=== PATIENT | female | born 1950 | race Hispanic/Latino ===

== ENCOUNTER 2019-07-07 13:05 | Emergency (ER) | payer MEDICARE ==
[2019-07-07 13:12] VITALS: BP 152/74
--- NOTE | 2019-07-07 13:46 | Cat Scan Report ---
CT BRAIN: 07/07/2019 INDICATION / CLINICAL INFORMATION: MAIN: fall, HASSAN, dizziness fall 2 weeks ago . COMPARISON: None available. FINDINGS: BRAIN/INTRACRANIAL STRUCTURES: Unenhanced CT images of the brain demonstrate no evidence of acute int racranial abnormality. Ventricles and sulci are slightly prominent in size, consistent with normal age-related atrophic wright ge. There is no evidence of acute ischemic injury, hemorrhage, or mass. There are no abnormal extra-axial fluid collections. Atherosclerotic vascular calcifications are present in the distal internal carotid arteries and verte bral arteries. EXTRACRANIAL STRUCTURES: Unremarkable. IMPRESSION: No acute abnormality. No CT evidence of recent injury. All CT scans at this location are performed using dose reduction to ALARA by means of automated expos ure control. Signer Name: Tai France MD Signed: 07/07/2019 1:41 PM Workstation Name: [id number]
--- NOTE | 2019-07-07 13:48 | Emergency Department Report ---
ED Dizziness HPI - General Chief Complaint: Dizziness Stated Complaint: FALL Source: patient Mode of arrival: Ambulatory Limitations: No Limitations - History of Present Illness Initial Comments: 69-year-old female in no acute distress presents to the emergency room complaining of nausea slight headache. Patient reports that she lost her footing and fell 2 weeks ago. She said at that time she had left side eyebrow swelling and facial swelling and soreness. Patient states that she did not have any change in vision no ear pain she just says that sometimes she hears it popping but that is both ears. Patient denies any vomiting states that she has a slight headache today and nausea. She does admit to having a history of vertigo. Patient states that she had fallen on carpet which was kind of thin. She denies any loss of consciousness no vomiting or nausea at the time MD Complaint: dizziness Onset/Timin -: week(s) (Had a fall), This morning Description: "room spinning" History of Same: Yes History of Trauma: Yes Severity: mild Improves With: remaining still Worsens With: movement Associated Symptoms: denies other symptoms - Related Data Previous Rx's Medication Instructions Recorded Last Taken Type HYDROcodone/APAP 5-325 [[place] 1 each PO Q6HR PRN #20 tablet 12/20/15 Unknown Rx 5/325] Meclizine [Antivert] 25 mg PO TID PRN #15 tablet 07/07/19 Unknown Rx Ondansetron [Zofran ODT TAB] 4 mg PO ONCE #12 tab.rapdis 07/07/19 Unknown Rx Allergies Allergy/AdvReac Type Severity Reaction Status Date / Time No Known Allergies Allergy Unverified 12/20/15 18:45 ED Review of Systems ROS: Stated complaint: FALL Other details as noted in HPI Comment: All other systems reviewed and negative ED Past Medical Hx - Past Medical History Previous Medical History?: Yes Hx Hypertension: Yes Additional medical history: benign tumor RUQ. AFib. shingles - Surgical History Past Surgical History?: Yes Additional Surgical History: bladder - Social History Smoking Status: Never Smoker Substance Use Type: None - Medications Home Medications: Home Medications Medication Instructions Recorded Confirmed Last Taken Type HYDROcodone/APAP 5-325 [[place] 1 each PO Q6HR PRN #20 tablet 12/20/15 Unknown Rx 5/325] Meclizine [Antivert] 25 mg PO TID PRN #15 tablet 07/07/19 Unknown Rx Ondansetron [Zofran ODT TAB] 4 mg PO ONCE #12 tab.rapdis 07/07/19 Unknown Rx ED Physical Exam - General Limitations: No Limitations General appearance: alert, in no apparent distress - Head Head exam: Present: atraumatic, normocephalic - Eye Eye exam: Present: other (Left eyebrow bruising no tenderness to palpate). Absent: PERRL, EOMI, periorbital swelling, periorbital tenderness - ENT ENT exam: Present: normal exam, normal external ear exam - Neck Neck exam: Present: normal inspection, full ROM - Cardiovascular Cardiovascular Exam: Present: regular rate, normal rhythm. Absent: systolic murmur, diastolic murmur, rubs, gallop - Neurological Exam Neurological exam: Present: alert, oriented X3, normal gait - Expanded Neurological Exam Expanded Cranial nerves: EOM's Intact: Normal, Gag Reflex: Normal, Tongue Deviation: Normal, Nystagmus: Normal, Facial Sensation: Normal, Facial Palsy with Forehead Movement: Normal, Facial Palsy without Forehead Movement: Normal Cerebellar function: Finger to Nose: Normal, Heel to [place]: Normal, Romberg: Normal Upper motor neuron: Jim Neglect: Normal, Pronator Drift: Normal, Sensory Ex tinction: Normal Sensory exam: Upper Extremity Light Touch: Normal, Upper Extremity Pin Prick: Normal, Upper Extremity Temperature: Normal, UE 2 Point Discrimination: Normal, Lower Extremity Light Touch: Normal, Lower Extremity Pin Prick: Normal, Lower Extremity Temperature: Normal, LE 2 Point Discrimination: Normal Motor strength exam: RUE: 4, LUE: 4, RLE: 4, LLE: 4 Best Eye Response ([place]): (4) open spontaneously Best Motor Response ([place]): (6) obeys commands Best Verbal Response ([place]): (5) oriented [place] Total: 15 - Psychiatric Psychiatric exam: Present: normal affect, normal mood - Skin Skin exam: Present: ecchymosis (Left eyebrow) ED Course Vital Signs 07/07/19 13:09 Temperature 97.8 F Pulse Rate 60 Respiratory 18 Rate Blood Pressure 152/74 O2 Sat by Pulse 97 Oximetry ED Medical Decision Making - Radiology Data Radiology results: report reviewed Print Report Referring Physician:ED DOCPatient Name:RHONDADIANA MORELANDPatient ID:[id number] of :[id number]:FemaleAccession:[id number] Date:0566-30-24Oofggo Status:Finalized Findings [facility] [address] [place] [address] Cat Scan Report Signed Patient: RHONDA MORELAND MR#: [id number] : 1950 Acct:[id number] Age/Sex: 69 / F ADM Date: 07/07/19 Loc: ED Attending Dr: Ordering Physician: CELIA MANUEL MD Date of Service: 07/07/19 Procedure(s): CT head/brain wo con Accession Number(s): [id number] cc: CELIA MANUEL MD CT BRAIN: 07/07/2019 INDICATION / CLINICAL INFORMATION: MAIN: fall, HASSAN, dizziness fall 2 weeks ago . COMPARISON: None available. FINDINGS: BRAIN/INTRACRANIAL STRUCTURES: Unenhanced CT images of the brain demonstrate no evidence of acute intracranial abnormality. Ventricles and sulci are slightly prominent in size, consistent with normal age- related atrophic change. There is no evidence of acute ischemic injury, hemorrhage, or mass. There are no abnormal extra- axial fluid collections. Atherosclerotic vascular calcifications are present in the distal internal carotid arteries and vertebral arteries. EXTRACRANIAL STRUCTURES: Unremarkable. IMPRESSION: No acute abnormality. No CT evidence of recent injury. All CT scans at this location are performed using dose reduction to ALARA by means of automated exposure control. Signer Name: Tai France MD Signed: 07/07/2019 1:41 PM Workstation Name: [id number] Transcribed By: AO Dictated By: Tai France MD Electronically Authenticated By: Tai France MD Signed Date/Time: 07/07/19 1341 DD/ 1340 TD/TT: - Medical Decision Making 69-year-old female in no acute distress presents to the emergency room complaining of nausea slight headache. Patient reports that she lost her footing and fell 2 weeks ago. She said at that time she had left side eyebrow swelling and facial swelling and soreness. Patient states that she did not have any change in vision no ear pain she just says that sometimes she hears it popping but that is both ears. Patient denies any vomiting states that she has a slight headache today and nausea. She does admit to having a history of vertigo. Patient states that she had fallen on carpet which was kind of thin. She denies any loss of consciousness no vomiting or nausea at the time. CT of head neck are normal. Patient will be given Zofran ODT for the nausea. Encourage patient to increase her fluid intake advance her diet as tolerated we will discharge patient home on Zofran and meclizine. Patient is to follow-up with her primary care provider. Critical care attestation.: If time is entered above; I have spent that time in minutes in the direct care of this critically ill patient, excluding procedure time. ED Disposition Clinical Impression: Fall, Vertigo, Mild headache, Nausea Disposition: DC- TO HOME OR SELFCARE Is pt being admited?: No Does the pt Need Aspirin: No Condition: Stable Instructions: Vertigo (ED) Additional Instructions: CAT scans were negative for any acute findings. Please take the Zofran and the meclizine for the nausea and spinning of the room. Follow-up with your primary care provider if he has any further concerns. Prescriptions: Meclizine [Antivert] 25 mg PO TID PRN #15 tablet PRN Reason: Vertigo Ondansetron [Zofran ODT TAB] 4 mg PO ONCE #12 tab.mary Referrals: PRIMARY CAREMD [Referring] - 3-5 Days CASTRO MOTA MD [Staff Physician] - 3-5 Days
[2019-07-07] MEDS ORDERED: ONDANSETRON 4 MG ODT TAB PO ONE (13:49)
--- NOTE | 2019-07-07 14:15 | Cat Scan Report ---
CT CERVICAL SPINE: 07/07/2019 INDICATION / CLINICAL INFORMATION: MAIN: Fall, neck pain posterior neck pain fall two weeks ago. COMPARISON: None available. FINDINGS: CT images of the cervical spine were obtained. Images are evaluated in the axial, coronal, and sagitt al planes. There is no evidence of acute abnormality. Mild right convex scoliosis is present. Vertebral body alignment is otherwise well preserved. LEVEL BY LEVEL ANALYSIS: . CRANIOCERVICAL JUNCTION: Unremarkable. PARASPINAL STRUCTURES: Unremarkable IMPRESSION: No acute abnormality. All CT scans at this location are performed using dose reduction to ALARA by means of automated expos ure control. Signer Name: Tai France MD Signed: 07/07/2019 2:11 PM Workstation Name: [id number]
== END 2019-07-07 14:18 | disposition home or self-care (01) ==
LOC: ED 13:05
DX: R42 Dizziness and giddiness (principal); R51 Headache; R11.0 Nausea; I10 Essential (primary) hypertension; Z98.890 Other specified postprocedural states; Z79.899 Other long term (current) drug therapy; W19.XXXA Unspecified fall, initial encounter; Y93.89 Activity, other specified; Y92.89 Other specified places as the place of occurrence of the external cause; Y99.8 Other external cause status
CPT/HCPCS: 70450; 72125; Q0162

== ENCOUNTER 2020-01-13 21:53 | Emergency (ER) | payer MEDICARE ==
[2020-01-13 23:11] LABS: Basophils % (Auto) 0.4 % (0.0-1.8); Eosinophils % (Auto) 0.3 % (0.0-4.3); Lymphocytes # (Auto) 1.2 K/mm3 (1.2-5.4); Lymphocytes % (Auto) 19.9 % (13.4-35.0); Mean Corpuscular HGB Conc 37 % (30-34); Mean Corpuscular Volume 93 fl (79-97); Monocytes # (Auto) 0.5 K/mm3 (0.0-0.8); Monocytes % (Auto) 7.8 % (0.0-7.3); Platelet Count 258 K/mm3 (140-440); Red Blood Count 3.37 M/mm3 (3.65-5.03)
[2020-01-13 23:13] LABS: Hematocrit 31.3 % (30.3-42.9); Hemoglobin 11.7 gm/dl (10.1-14.3)
[2020-01-13] MEDS ORDERED: cloNIDine 0.1 MG TAB PO ONE (23:15)
--- NOTE | 2020-01-13 23:21 | Emergency Department Report ---
HPI - General Chief Complaint: Neuro Symptoms/Deficit Time Seen by Provider: 01/13/20 22:26 - HPI HPI: This is a 70-year-old female presents to the emergency department from home with complaint of feeling "sick" and "I do not feel well", but the patient is unable to elaborate on her symptoms. Patient does say that her mouth feels dry and she feels like it is going to "stick together." She also says that sometimes she feels like she is going to pass out. Patient tells me that she feels disoriented at times over the past 2 days but that it worsened this morning. She complained of a generalized headache through triage, but denies any headache at the time of my examination. She denies any vision change, slurred speech, numbness or paresthesias, chest pain, shortness of breath or any other neurological deficits. Patient has a history of hypertension and says that he she has been compliant with her Bystolic but "I have been watching my blood pressure keep going up." The patient also says that she has been feeling anxious as she has not had any of her Xanax over the last month. The patient also has a history of remote atrial fibrillation that was treated with "a procedure" in 2007 and has not returned since her primary care physician is Dr. Woody Ross. No recent travel or sick contacts at home. She denies any tobacco or illicit drug use. ED Past Medical Hx - Past Medical History Previous Medical History?: Yes Hx Hypertension: Yes Additional medical history: benign tumor RUQ. AFib. shingles - Surgical History Past Surgical History?: Yes Additional Surgical History: bladder - Social History Smoking Status: Never Smoker Substance Use Type: None, Marijuana - Medications Home Medications: Home Medications Medication Instructions Recorded Confirmed Last Taken Type HYDROcodone/APAP 5-325 [[place] 1 each PO Q6HR PRN #20 tablet 12/20/15 Unknown Rx 5/325] Meclizine [Antivert] 25 mg PO TID PRN #15 tablet 07/07/19 Unknown Rx Ondansetron [Zofran ODT TAB] 4 mg PO ONCE #12 tab.rapdis 07/07/19 Unknown Rx ED Review of Systems ROS: Stated complaint: WEAKNESS Other details as noted in HPI Comment: All other systems reviewed and negative Constitutional: denies: chills, fever Eyes: denies: eye pain, vision change ENT: denies: ear pain, throat pain Respiratory: denies: cough, shortness of breath Cardiovascular: denies: chest pain, palpitations Gastrointestinal: denies: abdominal pain, vomiting Genitourinary: denies: dysuria, discharge Musculoskeletal: denies: back pain, arthralgia Skin: denies: as per HPI, lesions Neurological: headache, confusion. denies: numbness, paresthesias Physical Exam - Physical Exam Vital Signs: Vital Signs 01/13/20 01/13/20 22:01 22:57 Temperature 98.5 F Pulse Rate 64 69 Respiratory 20 16 Rate Blood Pressure 178/74 O2 Sat by Pulse 98 100 Oximetry Physical Exam: GENERAL: The patient is well-developed well-nourished. HENT: Normocephalic. Atraumatic. Patient has moist mucous membranes. EYES: Extraocular motions are intact. No nystagmus. NECK: Supple. Trachea is midline. CHEST/LUNGS: Clear to auscultation. There is no respiratory distress noted. HEART/CARDIOVASCULAR: Regular. There is no tachycardia. There is no murmur. ABDOMEN: Abdomen is soft, nontender. Patient has normal bowel sounds. SKIN: Skin is warm and dry. NEURO: The patient is awake, alert, and oriented. The patient is cooperative. The patient has no focal neurologic deficits. Normal speech. Cranial nerves II through XII grossly intact. No facial asymmetry. No pronator drift or dysmetria. MUSCULOSKELETAL: There is no tenderness or deformity. There is no limitation range of motion. ED Course Vital Signs 01/13/20 01/13/20 22:01 22:57 Temperature 98.5 F Pulse Rate 64 69 Respiratory 20 16 Rate Blood Pressure 178/74 O2 Sat by Pulse 98 100 Oximetry - Reevaluation(s) Reevaluation #1: 01/14/20 01:17 Lab Results 01/13/20 01/13/20 01/13/20 Range/Units 22:08 22:38 22:38 WBC 6.1 (4.5-11.0) K/mm3 RBC 3.37 L (3.65-5.03) M/mm3 Hgb 11.7 (10.1-14.3) gm/dl Hct 31.3 (30.3-42.9) % MCV 93 (79-97) fl MCH 35 H (28-32) pg MCHC 37 H (30-34) % RDW 15.0 (13.2-15.2) % Plt Count 258 (140-440) K/mm3 Lymph % (Auto) 19.9 (13.4-35.0) % [place] % (Auto) 7.8 H (0.0-7.3) % Eos % (Auto) 0.3 (0.0-4.3) % Baso % (Auto) 0.4 (0.0-1.8) % Lymph # (Auto) 1.2 (1.2-5.4) K/mm3 [place] # (Auto) 0.5 (0.0-0.8) K/mm3 Eos # (Auto) 0.0 (0.0-0.4) K/mm3 Baso # (Auto) 0.0 (0.0-0.1) K/mm3 Seg Neutrophils % 71.6 H (40.0-70.0) % Seg Neutrophils # 4.4 (1.8-7.7) K/mm3 PT 12.1 L (12.2-14.9) Sec. INR 0.91 (0.87-1.13) APTT 32.7 (24.2-36.6) Sec. Thrombin Time (15.1-19.6) Sec. Sodium (137-145) mmol/L Potassium (3.6-5.0) mmol/L Chloride (98-107) mmol/L Carbon Dioxide (22-30) mmol/L Anion Gap mmol/L BUN (7-17) mg/dL Creatinine (0.6-1.2) mg/dL Estimated GFR ml/min BUN/Creatinine Ratio % Glucose (65-100) mg/dL POC Glucose 98 (70-105) mg/dL Calcium (8.4-10.2) mg/dL Troponin T (0.00-0.029) ng/mL Urine Color (Yellow) Urine Turbidity (Clear) Urine pH (5.0-7.0) Ur Specific [place] (1.003-1.030) Urine Protein (Negative) mg/dL Urine Glucose (UA) (Negative) mg/dL Urine Ketones (Negative) mg/dL Urine Blood (Negative) Urine Nitrite (Negative) Urine Bilirubin (Negative) Urine Urobilinogen (<2.0) mg/dL Ur Leukocyte Esterase (Negative) Urine WBC (Auto) (0.0-6.0) /HPF Urine RBC (Auto) (0.0-6.0) /HPF U Epithel Cells (Auto) (0-13.0) /HPF Urine Bacteria (Auto) (Negative) /HPF Urine Mucus /HPF Urine Opiates Screen Urine Methadone Screen Ur Barbiturates Screen Ur Phencyclidine Scrn Ur Amphetamines Screen U Benzodiazepines Scrn Urine Cocaine Screen U Marijuana (THC) Screen Drugs of Abuse Note Plasma/Serum Alcohol (0-0.07) % 01/13/20 01/13/20 01/13/20 Range/Units 22:38 22:38 23:22 WBC (4.5-11.0) K/mm3 RBC (3.65-5.03) M/mm3 Hgb (10.1-14.3) gm/dl Hct (30.3-42.9) % MCV (79-97) fl MCH (28-32) pg MCHC (30-34) % RDW (13.2-15.2) % Plt Count (140-440) K/mm3 Lymph % (Auto) (13.4-35.0) % [place] % (Auto) (0.0-7.3) % Eos % (Auto) (0.0-4.3) % Baso % (Auto) (0.0-1.8) % Lymph # (Auto) (1.2-5.4) K/mm3 [place] # (Auto) (0.0-0.8) K/mm3 Eos # (Auto) (0.0-0.4) K/mm3 Baso # (Auto) (0.0-0.1) K/mm3 Seg Neutrophils % (40.0-70.0) % Seg Neutrophils # (1.8-7.7) K/mm3 PT (12.2-14.9) Sec. INR (0.87-1.13) APTT (24.2-36.6) Sec. Thrombin Time 13.4 L (15.1-19.6) Sec. Sodium 132 L (137-145) mmol/L Potassium 3.5 L (3.6-5.0) mmol/L Chloride 92.9 L (98-107) mmol/L Carbon Dioxide 27 (22-30) mmol/L Anion Gap 16 mmol/L BUN 8 (7-17) mg/dL Creatinine 1.0 (0.6-1.2) mg/dL Estimated GFR 55 ml/min BUN/Creatinine Ratio 8 % Glucose 96 (65-100) mg/dL POC Glucose (70-105) mg/dL Calcium 9.6 (8.4-10.2) mg/dL Troponin T < 0.010 (0.00-0.029) ng/mL Urine Color (Yellow) Urine Turbidity (Clear) Urine pH (5.0-7.0) Ur Specific [place] (1.003-1.030) Urine Protein (Negative) mg/dL Urine Glucose (UA) (Negative) mg/dL Urine Ketones (Negative) mg/dL Urine Blood (Negative) Urine Nitrite (Negative) Urine Bilirubin (Negative) Urine Urobilinogen (<2.0) mg/dL Ur Leukocyte Esterase (Negative) Urine WBC (Auto) (0.0-6.0) /HPF Urine RBC (Auto) (0.0-6.0) /HPF U Epithel Cells (Auto) (0-13.0) /HPF Urine Bacteria (Auto) (Negative) /HPF Urine Mucus /HPF Urine Opiates Screen Urine Methadone Screen Ur Barbiturates Screen Ur Phencyclidine Scrn Ur Amphetamines Screen U Benzodiazepines Scrn Urine Cocaine Screen U Marijuana (THC) Screen Drugs of Abuse Note Plasma/Serum Alcohol < 0.01 (0-0.07) % 01/14/20 01/14/20 Range/Units 00:33 00:33 WBC (4.5-11.0) K/mm3 RBC (3.65-5.03) M/mm3 Hgb (10.1-14.3) gm/dl Hct (30.3-42.9) % MCV (79-97) fl MCH (28-32) pg MCHC (30-34) % RDW (13.2-15.2) % Plt Count (140-440) K/mm3 Lymph % (Auto) (13.4-35.0) % [place] % (Auto) (0.0-7.3) % Eos % (Auto) (0.0-4.3) % Baso % (Auto) (0.0-1.8) % Lymph # (Auto) (1.2-5.4) K/mm3 [place] # (Auto) (0.0-0.8) K/mm3 Eos # (Auto) (0.0-0.4) K/mm3 Baso # (Auto) (0.0-0.1) K/mm3 Seg Neutrophils % (40.0-70.0) % Seg Neutrophils # (1.8-7.7) K/mm3 PT (12.2-14.9) Sec. INR (0.87-1.13) APTT (24.2-36.6) Sec. Thrombin Time (15.1-19.6) Sec. Sodium (137-145) mmol/L Potassium (3.6-5.0) mmol/L Chloride (98-107) mmol/L Carbon Dioxide (22-30) mmol/L Anion Gap mmol/L BUN (7-17) mg/dL Creatinine (0.6-1.2) mg/dL Estimated GFR ml/min BUN/Creatinine Ratio % Glucose (65-100) mg/dL POC Glucose (70-105) mg/dL Calcium (8.4-10.2) mg/dL Troponin T (0.00-0.029) ng/mL Urine Color Yellow (Yellow) Urine Turbidity Clear (Clear) Urine pH 5.0 (5.0-7.0) Ur Specific [place] 1.010 (1.003-1.030) Urine Protein <15 mg/dl (Negative) mg/dL Urine Glucose (UA) Neg (Negative) mg/dL Urine Ketones Neg (Negative) mg/dL Urine Blood Sm (Negative) Urine Nitrite Neg (Negative) Urine Bilirubin Neg (Negative) Urine Urobilinogen < 2.0 (<2.0) mg/dL Ur Leukocyte Esterase Neg (Negative) Urine WBC (Auto) 1.0 (0.0-6.0) /HPF Urine RBC (Auto) 3.0 (0.0-6.0) /HPF U Epithel Cells (Auto) 1.0 (0-13.0) /HPF Urine Bacteria (Auto) 1+ (Negative) /HPF Urine Mucus Few /HPF Urine Opiates Screen Presumptive negative Urine Methadone Screen Presumptive negative Ur Barbiturates Screen Presumptive negative Ur Phencyclidine Scrn Presumptive negative Ur Amphetamines Screen Presumptive negative U Benzodiazepines Scrn Presumptive negative Urine Cocaine Screen Presumptive negative U Marijuana (THC) Screen Presumptive negative Drugs of Abuse Note Disclamer Plasma/Serum Alcohol (0-0.07) % ED Medical Decision Making - Lab Data Result diagrams: 01/13/20 22:38 01/13/20 22:38 - EKG Data -: EKG Interpreted by Me EKG shows normal: sinus rhythm, axis, intervals, QRS complexes, ST-T waves (There is some anterior T wave flattening and/or mild inversion) Rate: normal - EKG Data When compared to previous EKG there are: no significant change Interpretation: unchanged when compared t (12/20/15) - Radiology Data Radiology results: report reviewed CT head without contrast HISTORY: Altered Mental Status. TECHNIQUE: Axial imaging performed from the skull apex through the skull base without the use of contrast. All CT scans at this location are performed using CT dose reduction for ALARA by means of automated exposure control. COMPARISON: 07/07/2019 FINDINGS: Parenchyma: No acute intracranial hemorrhage or parenchymal abnormality. Ventricles: There is mild diffuse brain atrophy with commensurate ventricular enlargement which is likely age appropriate. Soft tissues: Soft tissues including the orbits appear normal. Bones: No acute osseous abnormality. Sinuses: Sinuses and mastoid air cells are clear. IMPRESSION: No acute abnormal ity. - Medical Decision Making This patient presents to the emergency department with some nonspecific complaints of feeling ill. Through triage the patient had complained of a generalized headache. For me, the patient did not complain of any headache but did say that she was intermittently disoriented and sometimes felt as if she was going to pass out. On examination the patient does not have any focal, motor or sensory deficits and her cranial nerves are intact. She is a 0 on the NIH stroke scale. EKG did not show any morphology consistent with ST elevation myocardial infarction or any dysrhythmia and is unchanged from previous. Patient had a CT scan of the head without contrast, ordered through triage, that resulted as negative for any large territorial infarct, hemorrhage, or any other acute process. Patient's labs have been mostly unremarkable including CBC, metabolic panel, TSH, troponin, blood alcohol level, urinalysis and urine drug screen. The patient does present with some mild hypertension but it has been transient and at one point the blood pressure was about 150/50 without any antihypertensive medication given. At times the patient appears very anxious. Once we discussed the negative CT and laboratory results, the patient appeared to feel better and looked clinically improved. Patient was seen ambulatory in the emergency department and both appears and feels stable. She says that she believes that some of her Xanax, which she takes every 8 hours as needed, may have been taken by either her granddaughter or her granddaughters friend. Sometimes she takes it on a regular basis but says that she has not had the Xanax over the past few days. I wonder if there could be some level of physical dependence to the benzodiazepines and that she is experiencing some symptoms of mild withdrawal. However, the patient does not appear to have any emergent medical condition that requires any intervention or admission at this time. She has an appointment with her primary care physician, Dr. Woody Ross, tomorrow. She appears safe for discharge home at this time, but has been instructed to return to the closest emergency department with any worsening of her symptoms or with any acute distress. Critical Care Time: No Critical care attestation.: If time is entered above; I have spent that time in minutes in the direct care of this critically ill patient, excluding procedure time. ED Disposition Clinical Impression: Ill feeling Headache Qualifiers: Headache type: unspecified Headache chronicity pattern: unspecified pattern Intractability: not intractable Qualified Code(s): R51.9 - Headache, unspecified Hypertension Qualifiers: Hypertension type: essential hypertension Qualified Code(s): I10 - Essential (primary) hypertension Disposition: DC-01 TO HOME OR SELFCARE Is pt being admited?: No Condition: Stable Instructions: General Headache Without Cause, Hypertension, Adult, Hypertension (ED) Additional Instructions: Please follow-up with your primary care physician, Dr. Ross, today as previously scheduled. Take your medications as prescribed. Try to stay away from foods that are high in salt and caffeinated products. Keep a blood pressure log. Return to the emergency department with any worsening of your symptoms, new or concerning symptoms not addressed during this current emergency department visit, or with any acute distress. Referrals: WOODY ROSS MD [Referring] - 01/14/20 Time of Disposition: 00:31 - Assessment Assessment Interval: Baseline - Level of Consciousness 1a. Level of Consciousness: alert/keenly responsive - LOC Questions 1b. LOC Questions: answers both correctly - LOC Command 1c. LOC Commands: performs tasks correctly - Best Gaze 2. Best Gaze: normal - Visual 3. Visual: no visual loss - Facial Palsy 4. Facial Palsy: normal symmetrical movement - Motor Arm 5a. Motor Arm Left: no drift 5b. Motor Arm Right: no drift - Motor Leg 6a. Motor Leg Left: no drift 6b. Motor Leg Right: no drift - Limb Ataxia 7. Limb Ataxia: absent - Sensory 8. Sensory: normal - Best Language 9. Best Language: no aphasia - Dysarthria 10. Dysarthria: normal - Extinction and Inattention 11. Extinction/Inattention: no abnormality - Scoring Total Score: 0 Stroke Severity: No Stroke Symptoms
[2020-01-13 23:24] LABS: INR 0.91 (0.87-1.13)
[2020-01-13 23:25] LABS: Partial Thromboplastin Time 32.7 Sec. (24.2-36.6)
[2020-01-13 23:48] LABS: BUN/Creatinine Ratio 8; Blood Urea Nitrogen 8 mg/dL (7-17); Calcium 9.6 mg/dL (8.4-10.2); Hemolysis Index 11
--- NOTE | 2020-01-14 00:11 | Cat Scan Report ---
CT head without contrast HISTORY: Altered Mental Status. TECHNIQUE: Axial imaging performed from the skull apex through the skull base without the use of con trast. All CT scans at this location are performed using CT dose reduction for ALARA by means of aut omated exposure control. COMPARISON: 07/07/2019 FINDINGS: Parenchyma: No acute intracranial hemorrhage or parenchymal abnormality. Ventricles: There is mild diffuse brain atrophy with commensurate ventricular enlargement which is l ikely age appropriate. Soft tissues: Soft tissues including the orbits appear normal. Bones: No acute osseous abnormality. Sinuses: Sinuses and mastoid air cells are clear. IMPRESSION: No acute abnormality. Signer Name: Marino Mo MD Signed: 01/14/2020 12:07 AM Workstation Name: [id number]
[2020-01-14 00:52] LABS: Bacteria,Urine 1+ /HPF (Negative); Bilirubin,Urine NEG (Negative); Blood,Urine SM (Negative); Color,Urine Yellow (Yellow); Mucus,Urine FEW /HPF; Protein,Urine <15 mg/dL mg/dL (Negative); Urobilinogen,Urine < 2.0 mg/dL (<2.0)
[2020-01-14 01:00] LABS: Amphetamine Screen,Urine PRESUMPTIVE NEGATIVE; Benzodiazepines Screen,Urine PRESUMPTIVE NEGATIVE; Cannabinoid Screen,Urine PRESUMPTIVE NEGATIVE; Cocaine Screen,Urine PRESUMPTIVE NEGATIVE; Methadone Screen,Urine PRESUMPTIVE NEGATIVE; Opiate Screen,Urine PRESUMPTIVE NEGATIVE
[2020-01-14 01:25] VITALS: BP 167/61
== END 2020-01-14 01:30 | disposition home or self-care (01) ==
LOC: ED 21:53
DX: I10 Essential (primary) hypertension (principal); F12.10 Cannabis abuse, uncomplicated; Z79.899 Other long term (current) drug therapy
CPT/HCPCS: 36415; 70450; 80048; 80307; 80320; 81001; 82962; 84484; 85025; 85610; 85670; 85730; 93005; G0480

== ENCOUNTER 2021-10-10 08:58 | Inpatient (IN) | payer MEDICARE ==
[2021-10-10] MEDS ORDERED: SODIUM CHLORIDE 0.9% 1000 ML 1,000 ML IV ONE (11:20)
--- NOTE | 2021-10-10 11:25 | Emergency Department Report ---
ED Altered Mental Status HPI - General Chief Complaint: Altered Mental Status Stated Complaint: AMS/FALL Time Seen by Provider: 10/10/21 11:14 Source: EMS Mode of arrival: Stretcher Limitations: No Limitations - History of Present Illness Initial Comments: Patient is a 71-year-old female with history of hypertension and anxiety brought in by family for evaluation of altered mental status/confusion for the past several days. Family reports last known well time was Sunday. States patient now mumbles her words and appears to be looking for something that is not there. States she is also hearing voices. She has no history of schizophrenia. - Related Data Previous Rx's Medication Instructions Recorded Last Taken Type HYDROcodone/APAP 5-325 [[place] 1 each PO Q6HR PRN #20 tablet 12/20/15 Unknown Rx 5/325] Meclizine [Antivert] 25 mg PO TID PRN #15 tablet 07/07/19 Unknown Rx Ondansetron [Zofran ODT TAB] 4 mg PO ONCE #12 tab.rapdis 07/07/19 Unknown Rx Allergies Allergy/AdvReac Type Severity Reaction Status Date / Time No Known Allergies Allergy Verified 10/10/21 14:02 ED Review of Systems ROS: Stated complaint: AMS/FALL Other details as noted in HPI Comment: Unobtainable due to pts medical conditions ED Past Medical Hx - Past Medical History Hx Hypertension: Yes Additional medical history: benign tumor RUQ. AFib. shingles - Surgical History Additional Surgical History: bladder - Social History Smoking Status: Former Smoker - Medications Home Medications: Home Medications Medication Instructions Recorded Confirmed Last Taken Type HYDROcodone/APAP 5-325 [[place] 1 each PO Q6HR PRN #20 tablet 12/20/15 Unknown Rx 5/325] Meclizine [Antivert] 25 mg PO TID PRN #15 tablet 07/07/19 Unknown Rx Ondansetron [Zofran ODT TAB] 4 mg PO ONCE #12 tab.rapdis 07/07/19 Unknown Rx ED Physical Exam - General Limitations: No Limitations General appearance: alert, in no apparent distress, other (Confused) - Head Head exam: Present: atraumatic, normocephalic - Eye Eye exam: Present: normal appearance, EOMI - Respiratory Respiratory exam: Present: normal lung sounds bilaterally. Absent: respiratory distress - Cardiovascular Cardiovascular Exam: Present: regular rate, normal rhythm, normal heart sounds - GI/Abdominal GI/Abdominal exam: Present: soft, tenderness (Tenderness in right lower quadrant/periumbilical region). Absent: distended - Rectal Rectal exam: Present: deferred - Neurological Exam Neurological exam: Present: alert, altered, other (Oriented to person only) - Skin Skin exam: Present: warm, dry, intact ED Course Vital Signs 10/10/21 10/10/21 10/10/21 09:00 09:37 14:30 Temperature 98 F 98.2 F 98.8 F Pulse Rate 54 L 56 L 67 Respiratory 18 12 14 Rate Blood Pressure 136/50 Blood Pressure 158/116 136/50 154/56 [Left] O2 Sat by Pulse 98 97 100 Oximetry - Lab Data Result diagrams: 10/10/21 11:50 10/10/21 11:50 Lab Results 10/10/21 10/10/21 10/10/21 Range/Units 11:50 11:50 11:50 WBC 22.9 H (4.5-11.0) K/mm3 RBC 3.76 (3.65-5.03) M/mm3 Hgb 12.5 (10.1-14.3) gm/dl Hct 32.5 (30.3-42.9) % MCV 86 (79-97) fl MCH 33 H (28-32) pg MCHC 39 H* (30-34) % RDW 15.2 (13.2-15.2) % Plt Count 380 (140-440) K/mm3 Add Manual Diff Complete Total Counted 100 Seg Neutrophils % Director Of Construction Seg Neuts % (Manual) 88.0 H (40.0-70.0) % Band Neutrophils % 0 % Lymphocytes % (Manual) 1.0 L (13.4-35.0) % Reactive Lymphs % (Man) 0 % Monocytes % (Manual) 11.0 H (0.0-7.3) % Eosinophils % (Manual) 0 (0.0-4.3) % Basophils % (Manual) 0 (0.0-1.8) % Metamyelocytes % 0 % Myelocytes % 0 % Promyelocytes % 0 % Blast Cells % 0 % Nucleated RBC % Not Reportable Seg Neutrophils # Man 20.2 H (1.8-7.7) K/mm3 Band Neutrophils # 0.0 K/mm3 Lymphocytes # (Manual) 0.2 L (1.2-5.4) K/mm3 Abs React Lymphs (Man) 0.0 K/mm3 Monocytes # (Manual) 2.5 H (0.0-0.8) K/mm3 Eosinophils # (Manual) 0.0 (0.0-0.4) K/mm3 Basophils # (Manual) 0.0 (0.0-0.1) K/mm3 Metamyelocytes # 0.0 K/mm3 Myelocytes # 0.0 K/mm3 Promyelocytes # 0.0 K/mm3 Blast Cells # 0.0 K/mm3 WBC Morphology Not Reportable Hypersegmented Neuts Not Reportable Hyposegmented Neuts Not Reportable Hypogranular Neuts Not Reportable Smudge Cells Not Reportable Toxic Granulation Not Reportable Toxic Vacuolation Not Reportable Dohle Bodies Not Reportable Pelger-Huet Anomaly Not Reportable Arun Rods Not Reportable Platelet Estimate Consistent w auto Clumped Platelets Not Reportable Plt Clumps, EDTA Not Reportable Large Platelets Not Reportable Giant Platelets Not Reportable Platelet Satelliting Not Reportable Plt Morphology Comment Not Reportable RBC Morphology Not Reportable Dimorphic RBCs Not Reportable Polychromasia Not Reportable Hypochromasia Not Reportable Poikilocytosis Not Reportable Anisocytosis 1+ Microcytosis Not Reportable Macrocytosis Not Reportable Spherocytes Not Reportable Pappenheimer Bodies Not Reportable Sickle Cells Not Reportable Target Cells Not Reportable Tear Drop Cells Not Reportable Ovalocytes Not Reportable Helmet Cells Not Reportable [place]-Trent Bodies Not Reportable [place] Rings Not Reportable [place] Cells Not Reportable Bite Cells Not Reportable Crenated Cell Not Reportable Elliptocytes Not Reportable Acanthocytes (Spur) Not Reportable Rouleaux Not Reportable Hemoglobin C Crystals Not Reportable Schistocytes Not Reportable Malaria parasites Not Reportable Judd Bodies Not Reportable Hem Pathologist Commnt No PT 12.6 (12.2-14.9) Sec. INR 0.86 L (0.87-1.13) APTT 29.4 (24.2-36.6) Sec. Sodium 107 L* (137-145) mmol/L Potassium 2.3 L* (3.6-5.0) mmol/L Chloride 62.2 L (98-107) mmol/L Carbon Dioxide 30 (22-30) mmol/L Anion Gap 17 mmol/L BUN 20 H (7-17) mg/dL Creatinine 1.0 (0.6-1.2) mg/dL Estimated GFR 55 ml/min BUN/Creatinine Ratio 20 % Glucose 118 H (65-100) mg/dL Lactic Acid (0.7-2.0) mmol/L Calcium 9.8 (8.4-10.2) mg/dL Total Bilirubin 3.90 H (0.1-1.2) mg/dL AST 70 H (5-40) units/L ALT 18 (7-56) units/L Alkaline Phosphatase 117 (35-129) units/L Ammonia (25-60) umol/L Total Creatine Kinase (30-135) units/L Total Protein 7.7 (6.3-8.2) g/dL Albumin 4.8 (3.9-5) g/dL Albumin/Globulin Ratio 1.7 % Urine Color (Yellow) Urine Turbidity (Clear) Specific [place] (Man) (1.003-1.030) Ur Protein (Man) (Negative) mg/dL Ur Ketones (Man) (Negative) Ur Nitrite (Man) (Negative) Urine Bilirubin (Man) (Negative) Leukocyte Esterase (Man) (Negative) Urine WBC (Auto) (0.0-6.0) /HPF Urine RBC (Auto) (0.0-6.0) /HPF U Epithel Cells (Auto) (0-13.0) /HPF Urine RBC (Manual) (Negative) Hyaline Casts /LPF Urine Mucus /HPF Salicylates (2.8-20.0) mg/dL Acetaminophen (10.0-30.0) ug/mL Plasma/Serum Alcohol (0-0.07) % 10/10/21 10/10/21 10/10/21 Range/Units 11:50 11:50 11:50 WBC (4.5-11.0) K/mm3 RBC (3.65-5.03) M/mm3 Hgb (10.1-14.3) gm/dl Hct (30.3-42.9) % MCV (79-97) fl MCH (28-32) pg MCHC (30-34) % RDW (13.2-15.2) % Plt Count (140-440) K/mm3 Add Manual Diff Total Counted Seg Neutrophils % Seg Neuts % (Manual) (40.0-70.0) % Band Neutrophils % % Lymphocytes % (Manual) (13.4-35.0) % Reactive Lymphs % (Man) % Monocytes % (Manual) (0.0-7.3) % Eosinophils % (Manual) (0.0-4.3) % Basophils % (Manual) (0.0-1.8) % Metamyelocytes % % Myelocytes % % Promyelocytes % % Blast Cells % % Nucleated RBC % Seg Neutrophils # Man (1.8-7.7) K/mm3 Band Neutrophils # K/mm3 Lymphocytes # (Manual) (1.2-5.4) K/mm3 Abs React Lymphs (Man) K/mm3 Monocytes # (Manual) (0.0-0.8) K/mm3 Eosinophils # (Manual) (0.0-0.4) K/mm3 Basophils # (Manual) (0.0-0.1) K/mm3 Metamyelocytes # K/mm3 Myelocytes # K/mm3 Promyelocytes # K/mm3 Blast Cells # K/mm3 WBC Morphology Hypersegmented Neuts Hyposegmented Neuts Hypogranular Neuts Smudge Cells Toxic Granulation Toxic Vacuolation Dohle Bodies Pelger-Huet Anomaly Arun Rods Platelet Estimate Clumped Platelets Plt Clumps, EDTA Large Platelets Giant Platelets Platelet Satelliting Plt Morphology Comment RBC Morphology Dimorphic RBCs Polychromasia Hypochromasia Poikilocytosis Anisocytosis Microcytosis Macrocytosis Spherocytes Pappenheimer Bodies Sickle Cells Target Cells Tear Drop Cells Ovalocytes Helmet Cells [place]-Trent Bodies [place] Rings Kevin Cells Bite Cells Crenated Cell Elliptocytes Acanthocytes (Spur) Rouleaux Hemoglobin C Crystals Schistocytes Malaria parasites Judd Bodies Hem Pathologist Commnt PT (12.2-14.9) Sec. INR (0.87-1.13) APTT (24.2-36.6) Sec. Sodium (137-145) mmol/L Potassium (3.6-5.0) mmol/L Chloride (98-107) mmol/L Carbon Dioxide (22-30) mmol/L Anion Gap mmol/L BUN (7-17) mg/dL Creatinine (0.6-1.2) mg/dL Estimated GFR ml/min BUN/Creatinine Ratio % Glucose (65-100) mg/dL Lactic Acid 1.60 (0.7-2.0) mmol/L Calcium (8.4-10.2) mg/dL Total Bilirubin (0.1-1.2) mg/dL AST (5-40) units/L ALT (7-56) units/L Alkaline Phosphatase (35-129) units/L Ammonia 49.0 (25-60) umol/L Total Creatine Kinase (30-135) units/L Total Protein (6.3-8.2) g/dL Albumin (3.9-5) g/dL Albumin/Globulin Ratio % Urine Color (Yellow) Urine Turbidity (Clear) Specific [place] (Man) (1.003-1.030) Ur Protein (Man) (Negative) mg/dL Ur Ketones (Man) (Negative) Ur Nitrite (Man) (Negative) Urine Bilirubin (Man) (Negative) Leukocyte Esterase (Man) (Negative) Urine WBC (Auto) (0.0-6.0) /HPF Urine RBC (Auto) (0.0-6.0) /HPF U Epithel Cells (Auto) (0-13.0) /HPF Urine RBC (Manual) (Negative) Hyaline Casts /LPF Urine Mucus /HPF Salicylates < 0.3 L (2.8-20.0) mg/dL Acetaminophen (10.0-30.0) ug/mL Plasma/Serum Alcohol (0-0.07) % 10/10/21 10/10/21 10/10/21 Range/Units 11:50 11:50 11:50 WBC (4.5-11.0) K/mm3 RBC (3.65-5.03) M/mm3 Hgb (10.1-14.3) gm/dl Hct (30.3-42.9) % MCV (79-97) fl MCH (28-32) pg MCHC (30-34) % RDW (13.2-15.2) % Plt Count (140-440) K/mm3 Add Manual Diff Total Counted Seg Neutrophils % Seg Neuts % (Manual) (40.0-70.0) % Band Neutrophils % % Lymphocytes % (Manual) (13.4-35.0) % Reactive Lymphs % (Man) % Monocytes % (Manual) (0.0-7.3) % Eosinophils % (Manual) (0.0-4.3) % Basophils % (Manual) (0.0-1.8) % Metamyelocytes % % Myelocytes % % Promyelocytes % % Blast Cells % % Nucleated RBC % Seg Neutrophils # Man (1.8-7.7) K/mm3 Band Neutrophils # K/mm3 Lymphocytes # (Manual) (1.2-5.4) K/mm3 Abs React Lymphs (Man) K/mm3 Monocytes # (Manual) (0.0-0.8) K/mm3 Eosinophils # (Manual) (0.0-0.4) K/mm3 Basophils # (Manual) (0.0-0.1) K/mm3 Metamyelocytes # K/mm3 Myelocytes # K/mm3 Promyelocytes # K/mm3 Blast Cells # K/mm3 WBC Morphology Hypersegmented Neuts Hyposegmented Neuts Hypogranular Neuts Smudge Cells Toxic Granulation Toxic Vacuolation Dohle Bodies Pelger-Huet Anomaly Arun Rods Platelet Estimate Clumped Platelets Plt Clumps, EDTA Large Platelets Giant Platelets Platelet Satelliting Plt Morphology Comment RBC Morphology Dimorphic RBCs Polychromasia Hypochromasia Poikilocytosis Anisocytosis Microcytosis Macrocytosis Spherocytes Pappenheimer Bodies Sickle Cells Target Cells Tear Drop Cells Ovalocytes Helmet Cells Mag[place]-Trent Bodies [place] Rings Kevin Cells Bite Cells Crenated Cell Elliptocytes Acanthocytes (Spur) Rouleaux Hemoglobin C Crystals Schistocytes Malaria parasites Judd Bodies Hem Pathologist Commnt PT (12.2-14.9) Sec. INR (0.87-1.13) APTT (24.2-36.6) Sec. Sodium (137-145) mmol/L Potassium (3.6-5.0) mmol/L Chloride (98-107) mmol/L Carbon Dioxide (22-30) mmol/L Anion Gap mmol/L BUN (7-17) mg/dL Creatinine (0.6-1.2) mg/dL Estimated GFR ml/min BUN/Creatinine Ratio % Glucose (65-100) mg/dL Lactic Acid (0.7-2.0) mmol/L Calcium (8.4-10.2) mg/dL Total Bilirubin (0.1-1.2) mg/dL AST (5-40) units/L ALT (7-56) units/L Alkaline Phosphatase (35-129) units/L Ammonia (25-60) umol/L Total Creatine Kinase 1016 H (30-135) units/L Total Protein (6.3-8.2) g/dL Albumin (3.9-5) g/dL Albumin/Globulin Ratio % Urine Color (Yellow) Urine Turbidity (Clear) Specific [place] (Man) (1.003-1.030) Ur Protein (Man) (Negative) mg/dL Ur Ketones (Man) (Negative) Ur Nitrite (Man) (Negative) Urine Bilirubin (Man) (Negative) Leukocyte Esterase (Man) (Negative) Urine WBC (Auto) (0.0-6.0) /HPF Urine RBC (Auto) (0.0-6.0) /HPF U Epithel Cells (Auto) (0-13.0) /HPF Urine RBC (Manual) (Negative) Hyaline Casts /LPF Urine Mucus /HPF Salicylates (2.8-20.0) mg/dL Acetaminophen 5.0 L (10.0-30.0) ug/mL Plasma/Serum Alcohol < 0.01 (0-0.07) % 10/10/ Range/Units 14:30 WBC (4.5-11.0) K/mm3 RBC (3.65-5.03) M/mm3 Hgb (10.1-14.3) gm/dl Hct (30.3-42.9) % MCV (79-97) fl MCH (28-32) pg MCHC (30-34) % RDW (13.2-15.2) % Plt Count (140-440) K/mm3 Add Manual Diff Total Counted Seg Neutrophils % Seg Neuts % (Manual) (40.0-70.0) % Band Neutrophils % % Lymphocytes % (Manual) (13.4-35.0) % Reactive Lymphs % (Man) % Monocytes % (Manual) (0.0-7.3) % Eosinophils % (Manual) (0.0-4.3) % Basophils % (Manual) (0.0-1.8) % Metamyelocytes % % Myelocytes % % Promyelocytes % % Blast Cells % % Nucleated RBC % Seg Neutrophils # Man (1.8-7.7) K/mm3 Band Neutrophils # K/mm3 Lymphocytes # (Manual) (1.2-5.4) K/mm3 Abs React Lymphs (Man) K/mm3 Monocytes # (Manual) (0.0-0.8) K/mm3 Eosinophils # (Manual) (0.0-0.4) K/mm3 Basophils # (Manual) (0.0-0.1) K/mm3 Metamyelocytes # K/mm3 Myelocytes # K/mm3 Promyelocytes # K/mm3 Blast Cells # K/mm3 WBC Morphology Hypersegmented Neuts Hyposegmented Neuts Hypogranular Neuts Smudge Cells Toxic Granulation Toxic Vacuolation Dohle Bodies Pelger-Huet Anomaly Arun Rods Platelet Estimate Clumped Platelets Plt Clumps, EDTA Large Platelets Giant Platelets Platelet Satelliting Plt Morphology Comment RBC Morphology Dimorphic RBCs Polychromasia Hypochromasia Poikilocytosis Anisocytosis Microcytosis Macrocytosis Spherocytes Pappenheimer Bodies Sickle Cells Target Cells Tear Drop Cells Ovalocytes Helmet Cells [place]-Trent Bodies [place] Rings Kevin Cells Bite Cells Crenated Cell Elliptocytes Acanthocytes (Spur) Rouleaux Hemoglobin C Crystals Schistocytes Malaria parasites Judd Bodies Hem Pathologist Commnt PT (12.2-14.9) Sec. INR (0.87-1.13) APTT (24.2-36.6) Sec. Sodium (137-145) mmol/L Potassium (3.6-5.0) mmol/L Chloride (98-107) mmol/L Carbon Dioxide (22-30) mmol/L Anion Gap mmol/L BUN (7-17) mg/dL Creatinine (0.6-1.2) mg/dL Estimated GFR ml/min BUN/Creatinine Ratio % Glucose (65-100) mg/dL Lactic Acid (0.7-2.0) mmol/L Calcium (8.4-10.2) mg/dL Total Bilirubin (0.1-1.2) mg/dL AST (5-40) units/L ALT (7-56) units/L Alkaline Phosphatase (35-129) units/L Ammonia (25-60) umol/L Total Creatine Kinase (30-135) units/L Total Protein (6.3-8.2) g/dL Albumin (3.9-5) g/dL Albumin/Globulin Ratio % Urine Color Dark yellow (Yellow) Urine Turbidity Clear (Clear) Specific [place] (Man) 1.010 (1.003-1.030) Ur Protein (Man) 3+ (Negative) mg/dL Ur Ketones (Man) Negative (Negative) Ur Nitrite (Man) Negative (Negative) Urine Bilirubin (Man) Negative (Negative) Leukocyte Esterase (Man) Negative (Negative) Urine WBC (Auto) 1.0 (0.0-6.0) /HPF Urine RBC (Auto) 10.0 (0.0-6.0) /HPF U Epithel Cells (Auto) 3.0 (0-13.0) /HPF Urine RBC (Manual) 2+ (Negative) Hyaline Casts 19 /LPF Urine Mucus Few /HPF Salicylates (2.8-20.0) mg/dL Acetaminophen (10.0-30.0) ug/mL Plasma/Serum Alcohol (0-0.07) % - Medical Decision Making Laboratory evaluation reveals severe hyponatremia of 107. Patient started on normal saline infusion. Serum potassium 2.3. Patient given IV KCl. WBC count 22.9. No acute findings on chest x-ray. T bili 3.9. Right upper quadrant sound shows no obstructive pathology. Patient is altered mental status likely due to severe hyponatremia. Will admit to hospitalist/[facility]. Critical Care Time: Yes Critical care time in (mins) excluding proc time.: 35 Critical care attestation.: If time is entered above; I have spent that time in minutes in the direct care of this critically ill patient, excluding procedure time. ED Disposition Clinical Impression: Hyponatremia, Hypokalemia Disposition: 09 ADMITTED INPATIENT Is pt being admited?: Yes Condition: Stable
[2021-10-10 12:42] LABS: Mean Corpuscular HGB Conc 39 % (30-34); Mean Corpuscular Volume 86 fl (79-97); Platelet Count 380 K/mm3 (140-440); Red Blood Count 3.76 M/mm3 (3.65-5.03); Red Cell Distribution Width 15.2 % (13.2-15.2)
--- NOTE | 2021-10-10 12:47 | Cat Scan Report ---
CT head/brain wo con INDICATION: Altered Mental Status. TECHNIQUE: Routine CT head. All CT scans at this location are performed using CT dose reduction for A JANETH by means of automated exposure control. COMPARISON: None. FINDINGS: Intracranial: Ramírez-white matter differentiation is maintained. No intracranial hemorrhage. No extra a xial collection. No hydrocephalus. No herniation. Sinuses: Paranasal sinuses and mastoid air cells are essentially clear. Orbits: Globes are intact. Calvarium: No acute fracture. IMPRESSION: 1. No acute intracranial abnormality. Signer Name: Juanpablo Medina MD Signed: 10/10/2021 12:42 PM Workstation Name: [id number]
[2021-10-10 12:54] LABS: INR 0.86 (0.87-1.13)
[2021-10-10 12:55] LABS: Partial Thromboplastin Time 29.4 Sec. (24.2-36.6)
[2021-10-10 12:58] LABS: Hematocrit 32.5 % (30.3-42.9); Hemoglobin 12.5 gm/dl (10.1-14.3)
[2021-10-10 13:17] LABS: Albumin 4.8 g/dL (3.9-5); Calcium 9.8 mg/dL (8.4-10.2)
[2021-10-10 13:36] LABS: Basophils % (Manual) 0 % (0.0-1.8); Eosinophils % (Manual) 0 % (0.0-4.3); Total Cells Counted 100
[2021-10-10 13:38] LABS: Anisocytosis 1+; Platelet Estimate Consistent w Auto
--- NOTE | 2021-10-10 14:20 | XRay Report ---
CHEST 1 VIEW 10/10/2021 2:06 PM INDICATION / CLINICAL INFORMATION: Leukocytosis. COMPARISON: None available. FINDINGS: SUPPORT DEVICES: None. HEART / MEDIASTINUM: Mild cardiomegaly. LUNGS / PLEURA: No significant pulmonary or pleural abnormality. No pneumothorax. ADDITIONAL FINDINGS: No significant additional findings. IMPRESSION: 1. Cardiomegaly without acute pulmonary abnormality. Signer Name: Storm Yoder MD Signed: 10/10/2021 2:16 PM Workstation Name: [email or web address]
[2021-10-10] MEDS ORDERED: SODIUM CHLORIDE 0.9% 1000 ML 1,000 ML ONE (15:16)
[2021-10-10 15:22] LABS: Color,Urine Dark Yellow (Yellow)
[2021-10-10] MEDS: POTASSIUM CHLORIDE 10 MEQ 10 MEQ/100 ML BAG IV SCH ×2 (15:25→15:57)
--- NOTE | 2021-10-10 15:25 | Ultrasound Report ---
Abdominal ultrasound INDICATION: Right upper quadrant pain FINDINGS: Aorta and IVC visualized appears normal. Gallbladder is been removed. Diffuse fatty infiltr ation of the liver with heterogeneity of the liver. Common bile duct measures 8.9 mm. Pancreas is not well seen. IMPRESSION: Diffuse fatty infiltration of the liver the liver is heterogeneous in appearance. Signer Name: Grzegorz Lamb MD Signed: 10/10/2021 3:21 PM Workstation Name: [id number]
[2021-10-10 15:27] LABS: Hyaline Casts,Urine 19 /LPF; Mucus,Urine FEW /HPF
--- NOTE | 2021-10-10 15:46 | History and Physical Report ---
History of Present Illness Chief complaint: She is getting weaker and acting confused History of present illness: 71 YO Female with Vascular Dementia, Cerebral Atherosclerosis, HTN, Abdominal Malignancy NOS presents to ED for evaluation. Patient has diminished cognition at the time of evaluation is unable to provide history. Patient history provided by her family numbers who are at bedside during exam and interview. As per family the patient has experienced increased confusion, garbled speech, and wandering around the house at night over the past 1 week with worsening symptoms over the same timeframe. Patient experienced a fall last night. EMS was notified and upon arrival the patient was found to be in distress and subsequent transported to [facility] for further care and evaluation of the aforementioned symp toms. The patient was seen and evaluated in the emergency department. All lab and imaging studies reviewed. The patient was found to have severe hyponatremia, metabolic encephalopathy, sepsis suspected secondary to urinary tract infection, as well as toxic metabolic encephalopathy. Patient mated to [facility] and initiated on sepsis protocol. Nephrology team consulted in ED. Patient has diminished cognition at the time my evaluation but has a positive gag reflex and is able to protect her airway without difficulty. No reports of fever, chills, chest pain, palpitation, productive cough, skin rash, recent contact, known exposure to COVID-19. No prior admission for review. All medication listed at time of admission has been reconciled. Advanced care planning conducted in ED. Past History Past Medical History: hypertension, other (See HPI) Past Surgical History: Other (Bladder surgery') Social history: single, lives with family Family history: hypertension Medications and Allergies Allergies Allergy/AdvReac Type Severity Reaction Status Date / Time No Known Allergies Allergy Verified 10/10/21 14:02 Home Medications Medication Instructions Recorded Confirmed Last Taken Type HYDROcodone/APAP 5-325 [[place] 1 each PO Q6HR PRN #20 tablet 12/20/15 Unknown Rx 5/325] Meclizine [Antivert] 25 mg PO TID PRN #15 tablet 07/07/19 Unknown Rx Ondansetron [Zofran ODT TAB] 4 mg PO ONCE #12 tab.rapdis 07/07/19 Unknown Rx Active Meds: Active Medications Potassium Chloride (Kcl 10meq/100ml) 10 meq in 100 mls @ 100 mls/hr IV Q1H KULDIP Stop: 10/10/21 17:59 Last Admin: 10/10/21 15:25 Dose: 100 mls/hr Review of Systems ROS unobtainable: due to mental status Exam - Constitutional Vitals: Temp Pulse Resp BP Pulse Ox 98.8 F 67 14 154/56 100 10/10/21 14:30 10/10/21 14:30 10/10/21 14:30 10/10/21 14:30 10/10/21 14:30 General appearance: Present: mild distress - EENT Eyes: Present: PERRL ENT: hearing intact, clear oral mucosa, hearing decreased - Neck Neck: Present: supple, normal ROM - Respiratory Respiratory effort: labored Respiratory: bilateral: diminished - Cardiovascular Heart Sounds: Present: S1 & S2. Absent: rub, click - Extremities Extremities: pulses symmetrical, No edema Peripheral Pulses: within normal limits - Abdominal General gastrointestinal: Present: soft, non-tender, non-distended, normal bowel sounds Female genitourinary: Present: normal - Integumentary Integumentary: Present: clear, dry, decreased turgor - Musculoskeletal Musculoskeletal: generalized weakness - Psychiatric Psychiatric: no appropriate mood/affect, no intact judgment & insight, no memory intact - Neurologic Neurologic: CNII-XII intact, no focal deficits, moves all extremities, no gait normal Results - Labs CBC & Chem 7: 10/10/21 11:50 10/10/21 16:14 Labs: Abnormal lab results 10/10/21 10/10/21 10/10/21 Range/Units 11:50 11:50 11:50 WBC 22.9 H (4.5-11.0) K/mm3 MCH 33 H (28-32) pg MCHC 39 H* (30-34) % Seg Neuts % (Manual) 88.0 H (40.0-70.0) % Lymphocytes % (Manual) 1.0 L (13.4-35.0) % Monocytes % (Manual) 11.0 H (0.0-7.3) % Seg Neutrophils # Man 20.2 H (1.8-7.7) K/mm3 Lymphocytes # (Manual) 0.2 L (1.2-5.4) K/mm3 Monocytes # (Manual) 2.5 H (0.0-0.8) K/mm3 INR 0.86 L (0.87-1.13) Sodium 107 L* (137-145) mmol/L Potassium 2.3 L* (3.6-5.0) mmol/L Chloride 62.2 L (98-107) mmol/L BUN 20 H (7-17) mg/dL Glucose 118 H (65-100) mg/dL Total Bilirubin 3.90 H (0.1-1.2) mg/dL AST 70 H (5-40) units/L Total Creatine Kinase (30-135) units/L Salicylates (2.8-20.0) mg/dL Acetaminophen (10.0-30.0) ug/mL 10/10/21 10/10/21 10/10/21 Range/Units 11:50 11:50 11:50 WBC (4.5-11.0) K/mm3 MCH (28-32) pg MCHC (30-34) % Seg Neuts % (Manual) (40.0-70.0) % Lymphocytes % (Manual) (13.4-35.0) % Monocytes % (Manual) (0.0-7.3) % Seg Neutrophils # Man (1.8-7.7) K/mm3 Lymphocytes # (Manual) (1.2-5.4) K/mm3 Monocytes # (Manual) (0.0-0.8) K/mm3 INR (0.87-1.13) Sodium (137-145) mmol/L Potassium (3.6-5.0) mmol/L Chloride (98-107) mmol/L BUN (7-17) mg/dL Glucose (65-100) mg/dL Total Bilirubin (0.1-1.2) mg/dL AST (5-40) units/L Total Creatine Kinase 1016 H (30-135) units/L Salicylates < 0.3 L (2.8-20.0) mg/dL Acetaminophen 5.0 L (10.0-30.0) ug/mL Assessment and Plan - Patient Problems (1) Sepsis Current Visit: Yes Status: Acute Plan to address problem: CBC, CMP, chest x-ray, urinalysis, IV antibiotic therapy, monitor urine output, monitor fluid balance, maintain mean arterial pressure greater than or equal to 65, IV antibiotic therapy, IV fluid resuscitation therapy. (2) Hyponatremia syndrome Current Visit: Yes Status: Acute Plan to address problem: IV fluid resuscitation therapy, nephrology team consulted in ED. (3) Metabolic encephalopathy Current Visit: Yes Status: Acute Plan to address problem: CT head, neuro check, seizure precaution, aspiration precautions, IV fluid resus citation therapy. (4) UTI (urinary tract infection) Current Visit: Yes Status: Acute Qualifiers: Encounter type: initial encounter Plan to address problem: Urinalysis, IV antibiotic therapy. (5) Toxic metabolic encephalopathy Current Visit: Yes Status: Acute Plan to address problem: Treat sepsis, IV fluid resuscitation therapy, neuro check. (6) DVT prophylaxis Current Visit: Yes Status: Acute Plan to address problem: SCD to bilateral lower extremities while in bed (7) Advance care planning Current Visit: Yes Status: Acute Plan to address problem: Disease education done, care plan discussed, diagnoses discussed, prognosis discussed, patient is full code. Patient family knowledges understanding and agreement with care plan, +30 minutes. (8) Preventative health care Current Visit: Yes Status: Acute Plan to address problem: Patient family counseled regarding patient prognosis, home safety precautions, patient prognosis. Outpatient follow-up with primary care physician for all age and risk factor appropriate screening test. +30 minutes.
[2021-10-10] MEDS ORDERED: ACETAMINOPHEN 325 MG TAB PO PRN ×2 (15:48→15:50)
[2021-10-10] MEDS ORDERED: oxyCODONE /ACETAMINOPHEN 5-325MG TAB PO PRN (15:48)
[2021-10-10] MEDS ORDERED: HYDROmorphone 0.5 MG/0.5 ML INJ IV PRN (15:48)
[2021-10-10] MEDS ORDERED: ALBUTEROL 2.5 MG/3 ML NEBU IH PRN (15:48)
[2021-10-10] MEDS ORDERED: VANCOMYCIN 2,000 MG in SODIUM CHLORIDE 0.9% 500 ML 500 ML IV ONE (15:50)
[2021-10-10] MEDS ORDERED: SODIUM CHLORIDE 0.9% 1000 ML IV SOLN IV ONE (15:50)
[2021-10-10] MEDS ORDERED: VANCOMYCIN PHARMACY TO DOSE IV SCH (16:00)
--- NOTE | 2021-10-10 16:07 | Consultation ---
History of Present Illness - Reason for Consult Consult date: 10/10/21 hyponatremia, hypokalemia - History of Present Illness The patient is a 71 YO female with history of Obesity, HTN, Abdominal Malignancy NOS and Cognitive decline who presented to [facility] ED 10/10/21 for evaluation of increased confusion, garbled speech and wandering around the house at night over the past 1 week. Patient experienced a fall last night. Patient has diminished cognition at the time of evaluation and unable to provide history. Patient history provided by her son and at bedside during exam. Labs notable for Sodium 107 and K 2.3. Patient admitted with suspected sepsis and Hyponatremia. Nephrology consulted for further evaluation of Hyponatremia. Past History Past Medical History: other (See HPI.) Medications and Allergies Allergies Allergy/AdvReac Type Severity Reaction Status Date / Time No Known Allergies Allergy Verified 10/10/21 14:02 Home Medications Medication Instructions Recorded Confirmed Last Taken Type HYDROcodone/APAP 5-325 [[place] 1 each PO Q6HR PRN #20 tablet 12/20/15 Unknown Rx 5/325] Meclizine [Antivert] 25 mg PO TID PRN #15 tablet 07/07/19 Unknown Rx Ondansetron [Zofran ODT TAB] 4 mg PO ONCE #12 tab.rapdis 07/07/19 Unknown Rx Active Meds: Active Medications Acetaminophen (Acetaminophen 325 Mg Tab) 650 mg PO Q6H PRN PRN Reason: Pain MILD(1-3)/Fever >100.5/HASSAN Acetaminophen (Acetaminophen 325 Mg Tab) 650 mg PO Q6H PRN PRN Reason: Pain, Mild (1-3) Albuterol (Albuterol 2.5 Mg/3 Ml Nebu) 2.5 mg IH Q3HRT PRN PRN Reason: Shortness Of Breath Hydromorphone HCl (Hydromorphone 0.5 Mg/0.5 Ml Inj) 0.5 mg IV Q23H PRN PRN Reason: Pain , Severe (7-10) Hydromorphone HCl (Hydromorphone 0.5 Mg/0.5 Ml Inj) 0.25 mg IV Q4H PRN PRN Reason: Pain, Moderate (4-6) Potassium Chloride (Kcl 10meq/100ml) 10 meq in 100 mls @ 100 mls/hr IV Q1H KULDIP Stop: 10/10/21 17:59 Last Admin: 10/10/21 15:57 Dose: 100 mls/hr Vancomycin HCl 2,000 mg/ (Sodium Chloride) 540 mls @ 333 mls/hr IV ONCE ONE; Protocol Stop: 10/10/21 17:27 Oxycodone/Acetaminophen (Oxycodone /Acetaminophen 5-325mg Tab) 1 tab PO Q16H PRN PRN Reason: Pain, Moderate (4-6) Sodium Chloride (Sodium Chloride 0.9% 10 Ml Flush Syringe) 10 ml IV BID KULDIP Sodium Chloride (Sodium Chloride 0.9% 10 Ml Flush Syringe) 10 ml IV PRN PRN PRN Reason: LINE FLUSH Review of Systems ROS unobtainable: due to mental status Exam - Vital Signs Vital signs: Vital Signs Temp Pulse Resp BP Pulse Ox 98 F 54 L 18 158/116 98 10/10/21 09:00 10/10/21 09:00 10/10/21 09:00 10/10/21 09:00 10/10/21 09:00 Results - Lab Results 10/10/21 11:50 10/10/21 16:14 Most recent lab results Calcium 9.8 mg/dL (8.4-10.2) 10/10/21 11:50 Assessment and Plan 1. Hyponatremia: Likely hyponatremia 2/2 volume depletion. Urine and Serum Osm ordered. Continue IV fluids. Monitor Sodium level. 2. FEN: Hypokalemia, replete K, monitor. Replete lytes as needed. Monitor lytes and volume status. 3. Leukocytosis, POA: On Vancomycin. 4. Toxic metabolic encephalopathy, POA: CT head negative. Monitor. Subjective: Patient was seen and examined at the bedside. Examination: General appearance: well-developed, appears stated age, obese, no distress HEENT: atraumatic, no icterus Neck: trachea midline Respiratory: ctab Heart: S1S2, regular, no murmur Abdomen: soft, bowel sounds heard, NT Integumentary: no obvious rash Neurologic: alert, conversing, able to move extremities Ext: no edema
[2021-10-10 17:48] LABS: BUN/Creatinine Ratio TNR; Blood Urea Nitrogen TNR mg/dL (7-17); Calcium TNR mg/dL (8.4-10.2); Hemolysis Index TNR
[2021-10-10] MEDS: HYDROmorphone 0.5 MG/0.5 ML INJ IV PRN (20:48)
--- NOTE | 2021-10-10 22:57 | Event Note ---
Date: 10/10/21 Spoke with nurse about the lab draw.
[2021-10-10 23:24] LABS: BUN/Creatinine Ratio 28; Blood Urea Nitrogen 22 mg/dL (7-17); Calcium 8.8 mg/dL (8.4-10.2); Hemolysis Index 25
[2021-10-11] MEDS ORDERED: POTASSIUM CHLORIDE ER 20 MEQ TAB PO ONE ×2 (00:40→21:35)
[2021-10-11] MEDS: POTASSIUM CHLORIDE 10 MEQ 10 MEQ/100 ML BAG IV SCH ×5 (01:26→04:40)
[2021-10-11] MEDS: HYDROmorphone 0.5 MG/0.5 ML INJ IV PRN ×3 (01:26→19:50)
[2021-10-11 06:20] LABS: BUN/Creatinine Ratio 23; Blood Urea Nitrogen 18 mg/dL (7-17); Calcium 9.1 mg/dL (8.4-10.2); Hemolysis Index 3; Uric Acid 3.9 mg/dL (3.5-7.6)
[2021-10-11] MEDS ORDERED: POTASSIUM PHOSPHATE 45 MMOL in SODIUM CHLORIDE 0.9% 500 ML 500 ML IV SCH (08:00)
[2021-10-11] MEDS ORDERED: MAGNESIUM SULFATE 2 GM/50 ML BAG IV SCH (08:00)
[2021-10-11] MEDS: NACL 0.9%/KCL 40 MEQ 40 MEQ/1,000 ML BAG IV SCH ×2 (08:31→19:00)
[2021-10-11] MEDS ORDERED: VANCOMYCIN 1,500 MG in SODIUM CHLORIDE 0.9% 500 ML 500 ML IV SCH (09:00)
--- NOTE | 2021-10-11 11:23 | Progress Note ---
Assessment and Plan 1. Hyponatremia: Hyponatremia likely 2/2 volume depletion. Started on IV fluids. Sodium level remains low. Monitor Sodium level. 2. FEN: Hypokalemia, replete K, monitor. Replete lytes as needed. Monitor lytes and volume status. 3. Leukocytosis, POA: On Vancomycin. 4. Toxic metabolic encephalopathy, POA: CT head negative. Monitor. Subjective: Patient was seen and examined at the bedside. at the bedside. Examination: General appearance: well-developed, appears stated age, obese, no distress HEENT: atraumatic, no icterus Neck: trachea midline Respiratory: ctab Heart: S1S2, regular, no murmur Abdomen: soft, bowel sounds heard, NT Integumentary: no obvious rash Neurologic: alert, able to move extremities, confused Ext: no edema Subjective Date of service: 10/11/21 Objective - Vital Signs Vital signs: Vital Signs - 12hr 10/11/21 10/11/21 10/11/21 00:00 00:13 00:40 Temperature 97.6 F Pulse Rate 60 Respiratory 12 12 Rate Blood Pressure O2 Sat by Pulse 97 99 Oximetry 10/11/21 10/11/21 10/11/21 01:00 02:00 03:00 Temperature Pulse Rate 62 61 60 Respiratory 14 12 11 L Rate Blood Pressure 135/44 O2 Sat by Pulse 98 99 98 Oximetry 10/11/21 10/11/21 10/11/21 04:00 05:00 06:00 Temperature 98.3 F Pulse Rate 65 65 65 Respiratory 15 12 14 Rate Blood Pressure 157/60 166/96 165/51 O2 Sat by Pulse 99 98 99 Oximetry 10/11/21 10/11/21 10/11/21 07:00 07:29 08:00 Temperature 97.9 F Pulse Rate 61 66 Respiratory 14 17 Rate Blood Pressure 162/93 134/53 O2 Sat by Pulse 99 98 Oximetry 10/11/21 10/11/21 09:00 10:00 Temperature Pulse Rate 64 61 Respiratory 20 12 Rate Blood Pressure 131/50 97/46 O2 Sat by Pulse 100 100 Oximetry - Lab 10/10/21 11:50 10/11/21 05:51 Most recent lab results Calcium 9.1 mg/dL (8.4-10.2) 10/11/21 05:51 Phosphorus 1.70 mg/dL (2.5-4.5) L 10/11/21 05:51 Magnesium 1.60 mg/dL (1.7-2.3) L 10/11/21 05:51 Medications & Allergies - Medications Allergies/Adverse Reactions: Allergies No Known Allergies Allergy (Verified 10/10/21 14:02) Home Medications: Home Medications Medication Instructions Recorded Confirmed Last Taken Type HYDROcodone/APAP 5-325 [[place] 1 each PO Q6HR PRN #20 tablet 12/20/15 Unknown Rx 5/325] Meclizine [Antivert] 25 mg PO TID PRN #15 tablet 07/07/19 Unknown Rx Ondansetron [Zofran ODT TAB] 4 mg PO ONCE #12 tab.rapdis 07/07/19 Unknown Rx Active Medications: Generic Name Dose Route Start Last Admin Trade Name Freq PRN Reason Stop Dose Admin Acetaminophen 650 mg 10/10/21 15:48 Acetaminophen 325 Mg Tab PO Q6H PRN Pain MILD(1-3)/Fever >100.5/HASSAN Albuterol 2.5 mg 10/10/21 15:48 Albuterol 2.5 Mg/3 Ml Nebu IH Q3HRT PRN Shortness Of Breath Alprazolam 0.5 mg 10/11/21 11:30 Alprazolam 0.5 Mg Tab PO Q8H KULDIP Hydromorphone HCl 0.5 mg 10/10/21 15:48 Hydromorphone 0.5 Mg/0.5 Ml Inj IV Q23H PRN Pain , Severe (7-10) Hydromorphone HCl 0.25 mg 10/10/21 15:50 10/11/21 07:27 Hydromorphone 0.5 Mg/0.5 Ml Inj IV 0.25 mg Q4H PRN Administration Pain, Moderate (4-6) Vancomycin HCl 1,500 mg/ 530 mls @ 333.333 mls/hr 10/11/21 09:00 10/11/21 09:46 Sodium Chloride IV 333.333 mls/hr Q12H KULDIP Administration Potassium Phosphate 45 mmol/ 515 mls @ 85 mls/hr 10/11/21 08:00 Sodium Chloride IV 10/11/21 12:00 ONCE@0800 KULDIP Magnesium Sulfate 2 gm in 50 mls @ 25 mls/hr 10/11/21 08:00 08/30/22 08:32 Magnesium Sulfate 2gm/50ml IV 10/11/21 12:00 25 mls/hr ONCE@0800 KULDIP Administration Potassium Chloride/Sodium Chloride 40 meq in 1,000 mls @ 125 mls/hr 10/11/21 08:00 10/11/21 08:31 Ns/Kcl 40meq IV 125 mls/hr DIRECT KULDIP Administration Oxycodone/Acetaminophen 1 tab 10/10/21 15:48 Oxycodone /Acetaminophen 5-325mg Tab PO Q16H PRN Pain, Moderate (4-6) Sodium Chloride 10 ml 10/10/21 22:00 10/11/21 02:15 Sodium Chloride 0.9% 10 Ml Flush Syringe IV Not Given BID KULDIP Sodium Chloride 10 ml 10/10/21 15:48 Sodium Chloride 0.9% 10 Ml Flush Syringe IV PRN PRN LINE FLUSH
[2021-10-11] MEDS: ALPRAZolam 0.5 MG TAB PO SCH ×2 (12:10→21:00)
[2021-10-11] MEDS: cefTRIAXone/NS 2 GM/100 ML 2 GM/100 ML BAG IV SCH (13:28)
--- NOTE | 2021-10-11 14:23 | Progress Note ---
Assessment and Plan Assessment and plan: She is getting weaker and acting confused History of present illness: 71 YO Female with Vascular Dementia, Cerebral Atherosclerosis, HTN, Abdominal Malignancy NOS presents to ED for evaluation. Patient has diminished cognition at the time of evaluation is unable to provide history. Patient history provided by her family numbers who are at bedside during exam and interview. As per family the patient has experienced increased confusion, garbled speech, and wandering around the house at night over the past 1 week with worsening symptoms over the same timeframe. Patient experienced a fall last night. EMS was notified and upon arrival the patient was found to be in distress and subsequent transported to [facility] for further care and evaluation of the aforementioned symptom s. The patient was seen and evaluated in the emergency department. All lab and imaging studies reviewed. The patient was found to have severe hyponatremia, metabolic encephalopathy, sepsis suspected secondary to urinary tract infection, as well as toxic metabolic encephalopathy. Patient mated to [facility] and initiated on sepsis protocol. Nephrology team consulted in ED. Patient has diminished co gnition at the time my evaluation but has a positive gag reflex and is able to protect her airway without difficulty. No reports of fever, chills, chest pain, palpitation, productive cough, skin rash, recent contact, known exposure to COVID-19. No prior admission for review. All medication listed at time of admission has been reconciled. Advanced care planning conducted in ED. Past History Past Medical History: hypertension, other (See HPI) Past Surgical History: Other (Bladder surgery') Social history: single, lives with family Family history: hypertension 10/11: Patient seen and examined nephrology to see the patient due to severe hyponatremia felt to be secondary to volume depletion. On review of home medication patient is on paroxetine 20 mg Seroquel 50 mg Xanax 1 mg 3 times daily Venlfaxin 75 mg twice daily estradiol and lisinopril. His medications were last filled 09/18/2021. Some of antipsychotics could definitely lead to hyponatremia. In any case I agrees with nephrology management at this time. Sodium tablets also ordered for the patient. Will await further work-up we will check sodium levels daily 8 hours. Fall precaution aspiration precaution. Kavon estrada was recently treated for an infection as evidenced by Augmentin is not clear what infection this was. Critical care time 35 minutes discussed with family they understand the clinical condition at this time. Continue IMCU care (1) Sepsis Current Visit: Yes Status: Acute Plan to address problem: CBC, CMP, chest x-ray, urinalysis, IV antibiotic therapy, monitor urine output, monitor fluid balance, maintain mean arterial pressure greater than or equal to 65, IV antibiotic therapy, IV fluid resuscitation therapy. (2) Hyponatremia syndrome Current Visit: Yes Status: Acute Plan to address problem: IV fluid resuscitation therapy, nephrology team consulted in ED. (3) Metabolic encephalopathy Current Visit: Yes Status: Acute Plan to address problem: CT head, neuro check, seizure precaution, aspiration precautions, IV fluid resuscitation therapy. (4) UTI (urinary tract infection) Current Visit: Yes Status: Acute Qualifiers: Encounter type: initial encounter Plan to address problem: Urinalysis, IV antibiotic therapy. (5) Toxic metabolic encephalopathy Current Visit: Yes Status: Acute Plan to address problem: Treat sepsis, IV fluid resuscitation therapy, neuro check. (6) DVT prophylaxis Current Visit: Yes Status: Acute Plan to address problem: SCD to bilateral lower extremities while in bed (7) Advance care planning Current Visit: Yes Status: Acute Plan to address problem: Disease education done, care plan discussed, diagnoses discussed, prognosis discussed, patient is full code. Patient family knowledges understanding and agreement with care plan, +30 minutes. (8) Preventative health care Current Visit: Yes Status: Acute Plan to address problem: Patient family counseled regarding patient prognosis, home safety precautions, patient prognosis. Outpatient follow-up with primary care physician for all age and risk factor appropriate screening test. +30 minutes. History Interval history: Patient seen and examined this morning showing some improvement but still intermittent confusion. Discussed with nursing staff, significant other and daughter. Hospitalist Physical - Physical exam Narrative exam: General appearance: Present: No apparent distress but uncomfortable on intermittent confusion sluggish in response. - EENT Eyes: Present: PERRL ENT: hearing intact, clear oral mucosa, hearing decreased - Neck Neck: Present: supple, normal ROM - Respiratory Respiratory effort: labored Respiratory: bilateral: diminished - Cardiovascular Heart Sounds: Present: S1 & S2. Absent: rub, click - Extremities Extremities: pulses symmetrical, No edema Peripheral Pulses: within normal limits - Abdominal General gastrointestinal: Present: soft, non-tender, non-distended, normal bowel sounds Female genitourinary: Present: normal - Integumentary Integumentary: Present: clear, dry, decreased turgor - Musculoskeletal Musculoskeletal: generalized weakness - Psychiatric Psychiatric: no appropriate mood/affect, no intact judgment & insight, no memory intact - Neurologic Neurologic: CNII-XII intact, no focal deficits, moves all extremities, no gait normal - Constitutional Vitals: Temp Pulse Resp BP Pulse Ox 98.1 F 61 13 97/46 99 10/11/21 11:56 10/11/21 11:00 10/11/21 11:00 10/11/21 11:00 10/11/21 11:00 General appearance: Present: mild distress Results - Labs CBC & Chem 7: 10/10/21 11:50 10/11/21 05:51 Labs: Laboratory Last Values WBC 22.9 K/mm3 (4.5-11.0) H 10/10/21 11:50 RBC 3.76 M/mm3 (3.65-5.03) 10/10/21 11:50 Hgb 12.5 gm/dl (10.1-14.3) 10/10/21 11:50 Hct 32.5 % (30.3-42.9) 10/10/21 11:50 MCV 86 fl (79-97) 10/10/21 11:50 MCH 33 pg (28-32) H 10/10/21 11:50 MCHC 39 % (30-34) H* 10/10/21 11:50 RDW 15.2 % (13.2-15.2) 10/10/21 11:50 Plt Count 380 K/mm3 (140-440) 10/10/21 11:50 Add Manual Diff Complete 10/10/21 11:50 Total Counted 100 10/10/21 11:50 Seg Neutrophils % Fire Investigation Manager 10/10/21 11:50 Seg Neuts % (Manual) 88.0 % (40.0-70.0) H 10/10/21 11:50 Band Neutrophils % 0 % 10/10/21 11:50 Lymphocytes % (Manual) 1.0 % (13.4-35.0) L 10/10/21 11:50 Reactive Lymphs % (Man) 0 % 10/10/21 11:50 Monocytes % (Manual) 11.0 % (0.0-7.3) H 10/10/21 11:50 Eosinophils % (Manual) 0 % (0.0-4.3) 10/10/21 11:50 Basophils % (Manual) 0 % (0.0-1.8) 10/10/21 11:50 Metamyelocytes % 0 % 10/10/21 11:50 Myelocytes % 0 % 10/10/21 11:50 Promyelocytes % 0 % 10/10/21 11:50 Blast Cells % 0 % 10/10/21 11:50 Nucleated RBC % Not Reportable 10/10/21 11:50 Seg Neutrophils # Man 20.2 K/mm3 (1.8-7.7) H 10/10/21 11:50 Band Neutrophils # 0.0 K/mm3 10/10/21 11:50 Lymphocytes # (Manual) 0.2 K/mm3 (1.2-5.4) L 10/10/21 11:50 Abs React Lymphs (Man) 0.0 K/mm3 10/10/21 11:50 Monocytes # (Manual) 2.5 K/mm3 (0.0-0.8) H 10/10/21 11:50 Eosinophils # (Manual) 0.0 K/mm3 (0.0-0.4) 10/10/21 11:50 Basophils # (Manual) 0.0 K/mm3 (0.0-0.1) 10/10/21 11:50 Metamyelocytes # 0.0 K/mm3 10/10/21 11:50 Myelocytes # 0.0 K/mm3 10/10/21 11:50 Promyelocytes # 0.0 K/mm3 10/10/21 11:50 Blast Cells # 0.0 K/mm3 10/10/21 11:50 WBC Morphology Not Reportable 10/10/21 11:50 Hypersegmented Neuts Not Reportable 10/10/21 11:50 Hyposegmented Neuts Not Reportable 10/10/21 11:50 Hypogranular Neuts Not Reportable 10/10/21 11:50 Smudge Cells Not Reportable 10/10/21 11:50 Toxic Granulation Not Reportable 10/10/21 11:50 Toxic Vacuolation Not Reportable 10/10/21 11:50 Dohle Bodies Not Reportable 10/10/21 11:50 Pelger-Huet Anomaly Not Reportable 10/10/21 11:50 Arun Rods Not Reportable 10/10/21 11:50 Platelet Estimate Consistent w auto 10/10/21 11:50 Clumped Platelets Not Reportable 10/10/21 11:50 Plt Clumps, EDTA Not Reportable 10/10/21 11:50 Large Platelets Not Reportable 10/10/21 11:50 Giant Platelets Not Reportable 10/10/21 11:50 Platelet Satelliting Not Reportable 10/10/21 11:50 Plt Morphology Comment Not Reportable 10/10/21 11:50 RBC Morphology Not Reportable 10/10/21 11:50 Dimorphic RBCs Not Reportable 10/10/21 11:50 Polychromasia Not Reportable 10/10/21 11:50 Hypochromasia Not Reportable 10/10/21 11:50 Poikilocytosis Not Reportable 10/10/21 11:50 Anisocytosis 1+ 10/10/21 11:50 Microcytosis Not Reportable 10/10/21 11:50 Macrocytosis Not Reportable 10/10/21 11:50 Spherocytes Not Reportable 10/10/21 11:50 Pappenheimer Bodies Not Reportable 10/10/21 11:50 Sickle Cells Not Reportable 10/10/21 11:50 Target Cells Not Reportable 10/10/21 11:50 Tear Drop Cells Not Reportable 10/10/21 11:50 Ovalocytes Not Reportable 10/10/21 11:50 Helmet Cells Not Reportable 10/10/21 11:50 [place] Bodies Not Reportable 10/10/21 11:50 Ragan Rings Not Reportable 10/10/21 11:50 [place] Cells Not Reportable 10/10/21 11:50 Bite Cells Not Reportable 10/10/21 11:50 Crenated Cell Not Reportable 10/10/21 11:50 Elliptocytes Not Reportable 10/10/21 11:50 Acanthocytes (Spur) Not Reportable 10/10/21 11:50 Rouleaux Not Reportable 10/10/21 11:50 Hemoglobin C Crystals Not Reportable 10/10/21 11:50 Schistocytes Not Reportable 10/10/21 11:50 Malaria parasites Not Reportable 10/10/21 11:50 Judd Bodies Not Reportable 10/10/21 11:50 Hem Pathologist Commnt No 10/10/21 11:50 PT 12.6 Sec. (12.2-14.9) 10/10/21 11:50 INR 0.86 (0.87-1.13) L 10/10/21 11:50 APTT 29.4 Sec. (24.2-36.6) 10/10/21 11:50 Sodium 109 mmol/L (137-145) L* 10/11/21 05:51 Potassium 2.5 mmol/L (3.6-5.0) L* 10/11/21 05:51 Chloride 69.3 mmol/L (98-107) L 10/11/21 05:51 Carbon Dioxide 30 mmol/L (22-30) 10/11/21 05:51 Anion Gap 12 mmol/L 10/11/21 05:51 BUN 18 mg/dL (7-17) H 10/11/21 05:51 Creatinine 0.8 mg/dL (0.6-1.2) 10/11/21 05:51 Estimated GFR > 60 ml/min 10/11/21 05:51 BUN/Creatinine Ratio 23 % 10/11/21 05:51 Glucose 116 mg/dL (65-100) H 10/11/21 05:51 Osmolality 238 Mosm/kg 10/10/21 22:55 Lactic Acid 1.20 mmol/L (0.7-2.0) 10/10/21 22:44 Uric Acid 3.9 mg/dL (3.5-7.6) 10/11/21 05:51 Calcium 9.1 mg/dL (8.4-10.2) 10/11/21 05:51 Phosphorus 1.70 mg/dL (2.5-4.5) L 10/11/21 05:51 Magnesium 1.60 mg/dL (1.7-2.3) L 10/11/21 05:51 Total Bilirubin 3.90 mg/dL (0.1-1.2) H 10/10/21 11:50 AST 70 units/L (5-40) H 10/10/21 11:50 ALT 18 units/L (7-56) 10/10/21 11:50 Alkaline Phosphatase 117 units/L (35-129) 10/10/21 11:50 Ammonia 49.0 umol/L (25-60) 10/10/21 11:50 Total Creatine Kinase 1016 units/L (30-135) H 10/10/21 11:50 Total Protein 7.7 g/dL (6.3-8.2) 10/10/21 11:50 Albumin 4.8 g/dL (3.9-5) 10/10/21 11:50 Albumin/Globulin Ratio 1.7 % 10/10/21 11:50 Lipase 32 units/L (13-60) 10/10/21 15:15 Urine Color Dark yellow (Yellow) 10/10/21 14:30 Urine Turbidity Clear (Clear) 10/10/21 14:30 Specific [place] (Man) 1.010 (1.003-1.030) 10/10/21 14:30 Ur Protein (Man) 3+ mg/dL (Negative) 10/10/21 14:30 Ur Ketones (Man) Negative (Negative) 10/10/21 14:30 Ur Nitrite (Man) Negative (Negative) 10/10/21 14:30 Urine Bilirubin (Man) Negative (Negative) 10/10/21 14:30 Leukocyte Esterase (Man) Negative (Negative) 10/10/21 14:30 Urine WBC (Auto) 1.0 /HPF (0.0-6.0) 10/10/21 14:30 Urine RBC (Auto) 10.0 /HPF (0.0-6.0) 10/10/21 14:30 U Epithel Cells (Auto) 3.0 /HPF (0-13.0) 10/10/21 14:30 Urine RBC (Manual) 2+ (Negative) 10/10/21 14:30 Hyaline Casts 19 /LPF 10/10/21 14:30 Urine Mucus Few /HPF 10/10/21 14:30 Urine Osmolality 442 Mosm/kg 10/10/21 22:52 Salicylates < 0.3 mg/dL (2.8-20.0) L 10/10/21 11:50 Acetaminophen 5.0 ug/mL (10.0-30.0) L 10/10/21 11:50 Plasma/Serum Alcohol < 0.01 % (0-0.07) 10/10/21 11:50 Blood Type O NEGATIVE 10/10/21 16:28 Antibody Screen Negative 10/10/21 16:28 Microbiology: Microbiology 10/10/21 16:14 Peripheral/Venous Blood Culture - Preliminary Culture in Progress 10/10/21 16:14 Peripheral/Venous Blood Culture - Preliminary Culture in Progress Lee/IV: Voiding Method External Female Catheter Active Medications - Current Medications Current Medications: Generic Name Dose Route Start Last Admin Trade Name Freq PRN Reason Stop Dose Admin Acetaminophen 650 mg 10/10/21 15:48 Acetaminophen 325 Mg Tab PO Q6H PRN Pain MILD(1-3)/Fever >100.5/HASSAN Albuterol 2.5 mg 10/10/21 15:48 Albuterol 2.5 Mg/3 Ml Nebu IH Q3HRT PRN Shortness Of Breath Alprazolam 0.5 mg 10/11/21 12:00 10/11/21 12:10 Alprazolam 0.5 Mg Tab PO 0.5 mg Q8H KULDIP Administration Hydromorphone HCl 0.5 mg 10/10/21 15:48 Hydromorphone 0.5 Mg/0.5 Ml Inj IV Q23H PRN Pain , Severe (7-10) Hydromorphone HCl 0.25 mg 10/10/21 15:50 10/11/21 07:27 Hydromorphone 0.5 Mg/0.5 Ml Inj IV 0.25 mg Q4H PRN Administration Pain, Moderate (4-6) Potassium Chloride/Sodium Chloride 40 meq in 1,000 mls @ 125 mls/hr 10/11/21 08:00 10/11/21 08:31 Ns/Kcl 40meq IV 125 mls/hr DIRECT KULDIP Administration Ceftriaxone Sodium 2 gm in 100 mls @ 200 mls/hr 10/11/21 13:00 10/11/21 13:28 Rocephin/Ns 2 Gm/100 Ml IV 200 mls/hr Q24H KULDIP Administration Protocol Vancomycin HCl 1,500 mg/ 530 mls @ 333.333 mls/hr 10/12/21 10:00 Sodium Chloride IV Q24H KULDIP Oxycodone/Acetaminophen 1 tab 10/10/21 15:48 Oxycodone /Acetaminophen 5-325mg Tab PO Q16H PRN Pain, Moderate (4-6) Sodium Chloride 10 ml 10/10/21 22:00 10/11/21 13:28 Sodium Chloride 0.9% 10 Ml Flush Syringe IV 10 ml BID KULDIP Administration Sodium Chloride 10 ml 10/10/21 15:48 Sodium Chloride 0.9% 10 Ml Flush Syringe IV PRN PRN LINE FLUSH Sodium Chloride 1 gm 10/11/21 14:00 Sodium Chloride 1 Gm Tab PO TID KULDIP
--- NOTE | 2021-10-11 14:52 | Consultation ---
History of Present Illness - Reason for Consult Consult date: 10/11/21 Reason for consult: AMS - History of Present Psychiatric Illness The patient was seen today. She has a history of vascular Dementia, Cerebral Atherosclerosis, HTN, Abdominal Malignancy. She was brought in by family for confusion. During my evaluation, the patient is calm, and cooperative. She is a/ o x 2. She could not remember the month, but did reference the year correctly. The patient also could not recall the [place] President. When telling her who it was, she replies "oh yea, I didn't vote for Annelise. I voted for the other kaitlyn." The patient says she wished she could get out of bed. She says but no one will let her. The patient says she was diagnosed with Alzheimer's Disease. She believes that's why she was brought to the hospital. She says "but now I'm ready to go. I'm getting depressed being here." The patient says her granddaughter lives with her. She denies any major psych history outside of anxiety. She says she takes xanax for it. She denies SI/HI. The patient says "i don't even think about nothing like that. I'm not going to hurt myself or anybody else. I'm not that type of person." She denies hallucinations of any kind. The patient replies "no, I don't do any of that." PAST PSYCHIATRIC HISTORY: Diagnoses: Anxiety Suicide attempts or Self-harm behavior: Denies Prior psychiatric hospitalizations: Denies Substance Abuse history: Denies Previous psychiatric medications tried: xanax Outpatient treatment: Yes PAST MEDICAL HISTORY: HTN Family Psychiatric History: None reported or documented SOCIAL HISTORY Marital Status: Living Arrangements: with daughter Employment Status: Retired Access to guns/weapons: Denies Education: History of Abuse:Denies Legal History: Denies REVIEW OF SYSTEMS Constitutional: Negative for weight loss ENT: Negative for stridor Respiratory: Negative for cough or hemoptysis All other systems reviewed and are negative MENTAL STATUS EXAMINATION General Appearance and Behavior: Age appropriate, wearing appropriate clothes, cooperative, polite with questioning, good eye contact Cooperation: cooperative Psychomotor Behavior: Psychomotor normal Mood: okay Affect and affective range: congruent with stated affect, tearful Thought Process: Goal directed Thought Content: Reality oriented Speech: Normal volume, Regular rate and rhythm Suicidal Ideation: Denies Homicidal Ideation: Denies Hallucination: Denies Delusions: Denies Impulse Control: Limited Insight and Judgment: Limited Memory: Intact Attention: attentive Orientation: Alert and oriented Diagnoses Dementia with Behavioral Disturbance Treatment Plan Will hold off on starting meds at this time Sitter: Defer to primary Medical: per primary Disposition: Do not recommend acute psychiatric inpatient treatment. The patient's altered mental status is likely due to underlying medical conditions. Will follow for progress. Thanks Case staffed with Dr. Blanco Medications and Allergies Allergies Allergy/AdvReac Type Severity Reaction Status Date / Time No Known Allergies Allergy Verified 10/10/21 14:02 Home Medications Medication Instructions Recorded Confirmed Last Taken Type HYDROcodone/APAP 5-325 [[place] 1 each PO Q6HR PRN #20 tablet 12/20/15 Unknown Rx 5/325] Meclizine [Antivert] 25 mg PO TID PRN #15 tablet 07/07/19 Unknown Rx Ondansetron [Zofran ODT TAB] 4 mg PO ONCE #12 tab.rapdis 07/07/19 Unknown Rx Active Meds: Active Medications Acetaminophen (Acetaminophen 325 Mg Tab) 650 mg PO Q6H PRN PRN Reason: Pain MILD(1-3)/Fever >100.5/HASSAN Albuterol (Albuterol 2.5 Mg/3 Ml Nebu) 2.5 mg IH Q3HRT PRN PRN Reason: Shortness Of Breath Alprazolam (Alprazolam 0.5 Mg Tab) 0.5 mg PO Q8H KULDIP Last Admin: 10/11/21 12:10 Dose: 0.5 mg Hydromorphone HCl (Hydromorphone 0.5 Mg/0.5 Ml Inj) 0.5 mg IV Q23H PRN PRN Reason: Pain , Severe (7-10) Hydromorphone HCl (Hydromorphone 0.5 Mg/0.5 Ml Inj) 0.25 mg IV Q4H PRN PRN Reason: Pain, Moderate (4-6) Last Admin: 10/11/21 07:27 Dose: 0.25 mg Potassium Chloride/Sodium Chloride (Ns/Kcl 40meq) 40 meq in 1,000 mls @ 125 mls/hr IV DIRECT KULDIP Last Admin: 10/11/21 08:31 Dose: 125 mls/hr Ceftriaxone Sodium (Rocephin/Ns 2 Gm/100 Ml) 2 gm in 100 mls @ 200 mls/hr IV Q24H [facility]; Protocol Last Admin: 10/11/21 13:28 Dose: 200 mls/hr Vancomycin HCl 1,500 mg/ (Sodium Chloride) 530 mls @ 333.333 mls/hr IV Q24H [facility] Oxycodone/Acetaminophen (Oxycodone /Acetaminophen 5-325mg Tab) 1 tab PO Q16H PRN PRN Reason: Pain, Moderate (4-6) Sodium Chloride (Sodium Chloride 0.9% 10 Ml Flush Syringe) 10 ml IV BID KULDIP Last Admin: 10/11/21 13:28 Dose: 10 ml Sodium Chloride (Sodium Chloride 0.9% 10 Ml Flush Syringe) 10 ml IV PRN PRN PRN Reason: LINE FLUSH Sodium Chloride (Sodium Chloride 1 Gm Tab) 1 gm PO TID [facility] Mental Status Exam - Vital signs Last Vital Signs Temp 98.1 F 10/11/21 11:56 Pulse 61 10/11/21 11:00 Resp 13 10/11/21 11:00 BP 97/46 10/11/21 11:00 Pulse Ox 99 10/11/21 11:00 Results Result Diagrams: 10/10/21 11:50 10/11/21 05:51 Abnormal lab results 10/10/21 10/10/21 10/11/21 Range/Units 14:14 22:44 05:51 Sodium 113 L* D 109 L* (137-145) mmol/L Potassium 2.5 L* 2.5 L* (3.6-5.0) mmol/L Chloride 70.7 L 69.3 L (98-107) mmol/L BUN 22 H 18 H (7-17) mg/dL Glucose 124 H 116 H (65-100) mg/dL Phosphorus 1.70 L (2.5-4.5) mg/dL Magnesium 1.60 L 1.60 L (1.7-2.3) mg/dL All other labs normal.
[2021-10-11] MEDS: SODIUM CHLORIDE 1 GM TAB PO SCH ×2 (15:06→21:00)
[2021-10-11] MEDS ORDERED: POTASSIUM CHLORIDE ER 20 MEQ TAB PO SCH (18:00)
--- NOTE | 2021-10-11 20:01 | Event Note ---
Date: 10/11/21 No lab draw so far. Spoke with nurse about the lab draw. Advised to call me with results.
[2021-10-11 20:58] LABS: Blood Urea Nitrogen 13 mg/dL (7-17); Calcium 8.7 mg/dL (8.4-10.2); Hemolysis Index 7
[2021-10-11 21:12] LABS: BUN/Creatinine Ratio 19
[2021-10-11] MEDS ORDERED: LORazepam 2 MG/ML VIAL IV STA (22:33)
[2021-10-12] MEDS: ALPRAZolam 0.5 MG TAB PO SCH ×3 (05:30→22:29)
[2021-10-12 05:49] LABS: Hematocrit 28.3 % (30.3-42.9); Hemoglobin 10.2 gm/dl (10.1-14.3); Mean Corpuscular HGB Conc 36 % (30-34); Mean Corpuscular Volume 90 fl (79-97); Platelet Count 239 K/mm3 (140-440); Red Blood Count 3.13 M/mm3 (3.65-5.03); Red Cell Distribution Width 15.6 % (13.2-15.2)
[2021-10-12 06:23] LABS: Blood Urea Nitrogen 15 mg/dL (7-17); Calcium 8.3 mg/dL (8.4-10.2); Hemolysis Index 8
[2021-10-12 06:30] LABS: BUN/Creatinine Ratio 21
[2021-10-12] MEDS ORDERED: PHOS-NAK POWDER PACKET PO SCH (08:00)
[2021-10-12] MEDS ORDERED: POTASSIUM PHOSPHATE 40 MMOL in SODIUM CHLORIDE 0.9% 500 ML 500 ML IV ONE (09:23)
[2021-10-12] MEDS ORDERED: VANCOMYCIN 1,500 MG in SODIUM CHLORIDE 0.9% 500 ML 500 ML IV SCH (10:00)
--- NOTE | 2021-10-12 10:32 | Progress Note ---
Assessment and Plan 1. Hyponatremia: Hyponatremia likely 2/2 volume depletion. Started on IV fluids. Sodium level is gradually improving. Monitor Sodium level. 2. FEN: Hypokalemia, replete K, monitor. Replete lytes as needed. Monitor lytes and volume status. 3. Leukocytosis, POA: Improving. 4. Toxic metabolic encephalopathy, POA: CT head negative. Monitor. Subjective: Patient was seen and examined at the bedside. Nurse at the bedside. Examination: General appearance: well-developed, appears stated age, obese, no distress HEENT: atraumatic, no icterus Neck: trachea midline Respiratory: ctab Heart: S1S2, regular, no murmur Abdomen: soft, bowel sounds heard, NT Integumentary: no obvious rash Neurologic: alert, able to move extremities, confused Ext: no edema Subjective Date of service: 10/12/21 Objective - Vital Signs Vital signs: Vital Signs - 12hr 10/11/21 10/11/21 10/11/21 23:00 23:44 23:47 Temperature 97.6 F Pulse Rate 61 59 L Respiratory 11 L 13 Rate Blood Pressure 155/71 164/55 O2 Sat by Pulse 95 95 Oximetry 10/12/21 10/12/21 10/12/21 00:00 01:00 02:00 Temperature Pulse Rate 59 L 59 L 61 Respiratory 14 11 L 14 Rate Blood Pressure 118/46 118/46 137/56 O2 Sat by Pulse 98 98 97 Oximetry 10/12/21 10/12/21 10/12/21 03:00 04:00 05:00 Temperature 97.8 F Pulse Rate 58 L 59 L 61 Respiratory 17 11 L 16 Rate Blood Pressure 137/56 139/47 139/47 O2 Sat by Pulse 98 99 99 Oximetry 10/12/21 10/12/21 10/12/21 06:00 07:00 08:00 Temperature Pulse Rate 65 59 L 67 Respiratory 13 17 13 Rate Blood Pressure 139/56 156/49 156/49 O2 Sat by Pulse 100 100 Oximetry 10/12/21 10/12/21 10/12/21 08:33 09:00 10:00 Temperature 98 F Pulse Rate 59 L 59 L Respiratory 13 13 Rate Blood Pressure 138/48 138/48 O2 Sat by Pulse 99 95 Oximetry 10/12/21 10:06 Temperature Pulse Rate 82 Respiratory Rate Blood Pressure O2 Sat by Pulse Oximetry - Lab 10/12/21 05:20 10/12/21 18:08 Most recent lab results Calcium 8.3 mg/dL (8.4-10.2) L 10/12/21 05:20 Phosphorus 1.70 mg/dL (2.5-4.5) L 10/12/21 05:20 Magnesium 2.20 mg/dL (1.7-2.3) 10/12/21 05:20 Medications & Allergies - Medications Allergies/Adverse Reactions: Allergies No Known Allergies Allergy (Verified 10/10/21 14:02) Home Medications: Home Medications Medication Instructions Recorded Confirmed Last Taken Type Ondansetron [Zofran ODT TAB] 4 mg PO ONCE #12 tab.rapdis 07/07/19 10/12/21 Unknown Rx ALPRAZolam [Xanax TAB] 1 mg PO TID 10/12/21 10/12/21 Unknown History Chlorthalidone [Thalitone] 25 mg PO QDAY 10/12/21 10/12/21 Unknown History Diclofenac Sodium 75 mg PO QDAY 10/12/21 10/12/21 Unknown History Fluticasone [Flonase] 1 spray NS QDAY 10/12/21 10/12/21 Unknown History Nebivolol HCl 1 tab PO QDAY 10/12/21 10/12/21 Unknown History PARoxetine [Paxil] 20 mg PO DAILY 10/12/21 10/12/21 Unknown History Pantoprazole [Protonix] 40 mg PO QDAY 10/12/21 10/12/21 Unknown History Potassium Chloride [K-Dur] 10 meq PO QDAY 10/12/21 10/12/21 Unknown History QUEtiapine [SEROquel] 50 mg PO QHS 10/12/21 10/12/21 Unknown History Venlafaxine [Effexor] 75 mg PO BID 10/12/21 10/12/21 Unknown History lisinopriL [Lisinopril] 40 mg PO QDAY 10/12/21 10/12/21 Unknown History Active Medications: Generic Name Dose Route Start Last Admin Trade Name Freq PRN Reason Stop Dose Admin Acetaminophen 650 mg 10/10/21 15:48 10/12/21 08:23 Acetaminophen 325 Mg Tab PO 650 mg Q6H PRN Administration Pain MILD(1-3)/Fever >100.5/HASSAN Albuterol 2.5 mg 10/10/21 15:48 Albuterol 2.5 Mg/3 Ml Nebu IH Q3HRT PRN Shortness Of Breath Alprazolam 0.5 mg 10/11/21 12:00 10/12/21 05:30 Alprazolam 0.5 Mg Tab PO 0.5 mg Q8H KULDIP Administration Hydromorphone HCl 0.5 mg 10/10/21 15:48 Hydromorphone 0.5 Mg/0.5 Ml Inj IV Q23H PRN Pain , Severe (7-10) Hydromorphone HCl 0.25 mg 10/10/21 15:50 10/11/21 19:50 Hydromorphone 0.5 Mg/0.5 Ml Inj IV 0.25 mg Q4H PRN Administration Pain, Moderate (4-6) Potassium Chloride/Sodium Chloride 40 meq in 1,000 mls @ 125 mls/hr 10/11/21 08:00 10/11/21 19:00 Ns/Kcl 40meq IV 125 mls/hr DIRECT KULDIP Administration Ceftriaxone Sodium 2 gm in 100 mls @ 200 mls/hr 10/11/21 13:00 10/11/21 13:28 Rocephin/Ns 2 Gm/100 Ml IV 10/13/21 13:29 200 mls/hr Q24H KULDIP Administration Protocol Potassium Phosphate 20 mmol/ 506.6667 mls @ 83 mls/hr 10/12/21 11:00 Sodium Chloride IV 10/12/21 17:06 ONCE ONE Oxycodone/Acetaminophen 1 tab 10/10/21 15:48 Oxycodone /Acetaminophen 5-325mg Tab PO Q16H PRN Pain, Moderate (4-6) Potassium Phos/Sodium Phos 2 each 10/12/21 08:00 10/12/21 08:20 Phos-Nak Powder Packet PO 10/12/21 12:00 2 each ONCE@0800 KULDIP Administration Sodium Chloride 10 ml 10/10/21 22:00 10/12/21 10:02 Sodium Chloride 0.9% 10 Ml Flush Syringe IV 10 ml BID KULDIP Administration Sodium Chloride 10 ml 10/10/21 15:48 Sodium Chloride 0.9% 10 Ml Flush Syringe IV PRN PRN LINE FLUSH
[2021-10-12] MEDS ORDERED: SODIUM CHLORIDE 0.9% IV ONE (11:00)
[2021-10-12] MEDS ORDERED: POTASSIUM PHOSPHATE IV ONE (11:00)
[2021-10-12] MEDS: POTASSIUM CHLORIDE IV SCH (11:04)
[2021-10-12] MEDS: SODIUM CHLORIDE 0.9% IV SCH (11:04)
[2021-10-12] MEDS: cefTRIAXone/NS 2 GM/100 ML 2 GM/100 ML BAG IV SCH (14:30)
--- NOTE | 2021-10-12 14:59 | Progress Note ---
Subjective - Reason for Consult Consult date: 10/12/21 Reason for consult: AMS - Chief Complaint Chief complaint: The patient was seen today. She is sitting up in a chair in her room. Her spouse is at bedside with her holding her hand and kissing her. The patient is a/o x 3. She says she feels much better. The patient says she slept well, but says her back was hurting. She says "I slept well after they gave me something for my back pain." She denies SI/HI. She says, "not at all, but I know you have to ask me all of this." She denies hallucinations of any kind. REVIEW OF SYSTEMS Constitutional: Negative for weight loss ENT: Negative for stridor Respiratory: Negative for cough or hemoptysis All other systems reviewed and are negative MENTAL STATUS EXAMINATION General Appearance and Behavior: Age appropriate, wearing appropriate clothes, cooperative, polite with questioning, good eye contact Cooperation: cooperative Psychomotor Behavior: Psychomotor normal Mood: much better Affect and affective range: congruent with stated affect Thought Process: Goal directed Thought Content: Reality oriented Speech: Normal volume, Regular rate and rhythm Suicidal Ideation: Denies Homicidal Ideation: Denies Hallucination: Denies Delusions: Denies Impulse Control: Limited Insight and Judgment: Limited Memory: Intact Attention: attentive Orientation: Alert and oriented Diagnoses Dementia with Behavioral Disturbance Treatment Plan Continue previously prescribed meds Sitter: Defer to primary Medical: per primary Disposition: Do not recommend acute psychiatric inpatient treatment. The patient's altered mental status is likely due to underlying medical conditions. Will sign off. Thanks Case staffed with Dr. Blanco Mental Status Exam - Vital signs Last Vital Signs Temp 98 F 10/12/21 12:59 Pulse 60 10/12/21 11:00 Resp 16 10/12/21 11:00 BP 138/48 10/12/21 11:00 Pulse Ox 100 10/12/21 11:00
--- NOTE | 2021-10-12 16:22 | Progress Note ---
Assessment and Plan Assessment and plan: She is getting weaker and acting confused History of present illness: 71 YO Female with Vascular Dementia, Cerebral Atherosclerosis, HTN, Abdominal Malignancy NOS presents to ED for evaluation. Patient has diminished cognition at the time of evaluation is unable to provide history. Patient history provided by her family numbers who are at bedside during exam and interview. As per family the patient has experienced increased confusion, garbled speech, and wandering around the house at night over the past 1 week with worsening symptoms over the same timeframe. Patient experienced a fall last night. EMS was notified and upon arrival the patient was found to be in distress and subsequent transported to [facility] for further care and evaluation of the aforementioned symptom s. The patient was seen and evaluated in the emergency department. All lab and imaging studies reviewed. The patient was found to have severe hyponatremia, metabolic encephalopathy, sepsis suspected secondary to urinary tract infection, as well as toxic metabolic encephalopathy. Patient mated to [facility] and initiated on sepsis protocol. Nephrology team consulted in ED. Patient has diminished co gnition at the time my evaluation but has a positive gag reflex and is able to protect her airway without difficulty. No reports of fever, chills, chest pain, palpitation, productive cough, skin rash, recent contact, known exposure to COVID-19. No prior admission for review. All medication listed at time of admission has been reconciled. Advanced care planning conducted in ED. Past History Past Medical History: hypertension, other (See HPI) Past Surgical History: Other (Bladder surgery') Social history: single, lives with family Family history: hypertension 10/11: Patient seen and examined nephrology to see the patient due to severe hyponatremia felt to be secondary to volume depletion. On review of home medication patient is on paroxetine 20 mg Seroquel 50 mg Xanax 1 mg 3 times daily Venlfaxin 75 mg twice daily estradiol and lisinopril. His medications were last filled 09/18/2021. Some of antipsychotics could definitely lead to hyponatremia. In any case I agrees with nephrology management at this time. Sodium tablets also ordered for the patient. Will await further work-up we will check sodium levels daily 8 hours. Fall precaution aspiration precaution. Kavon estrada was recently treated for an infection as evidenced by Augmentin is not clear what infection this was. 10/12: Patient seen and examined, sodium is improving. Nephro input is noted. Psychiatry also did see the patient documented dementia with behavioral disorder continue current management. Anticipate that there will be improvement with correction of underlying electrolyte abnormalities. We will replace potassium and phosphorus. Cultures did come back with gram-positive cocci in clusters patient is currently on empiric antibiotic coverage. We will proceed with transferring to the medical floor once a bed is available. Hopefully discharge in a.m. once clinically improved and culture ID and sensitivity identified. Patient with no fever at this time. Continue close monitoring (1) Sepsis Current Visit: Yes Status: Acute Plan to address problem: CBC, CMP, chest x-ray, urinalysis, IV antibiotic therapy, monitor urine output, monitor fluid balance, maintain mean arterial pressure greater than or equal to 65, IV antibiotic therapy, IV fluid resuscitation therapy. (2) Hyponatremia syndrome Current Visit: Yes Status: Acute Plan to address problem: IV fluid resuscitation therapy, nephrology team consulted in ED. (3) Metabolic encephalopathy Current Visit: Yes Status: Acute Plan to address problem: CT head, neuro check, seizure precaution, aspiration precautions, IV fluid res uscitation therapy. (4) UTI (urinary tract infection) Current Visit: Yes Status: Acute Qualifiers: Encounter type: initial encounter Plan to address problem: Urinalysis, IV antibiotic therapy. (5) Toxic metabolic encephalopathy Current Visit: Yes Status: Acute Plan to address problem: Treat sepsis, IV fluid resuscitation therapy, neuro check. (6) hypokalemia with hyponatremia (7) DVT prophylaxis Current Visit: Yes Status: Acute Plan to address problem: SCD to bilateral lower extremities while in bed (8) Advance care planning Current Visit: Yes Status: Acute Plan to address problem: Disease education done, care plan discussed, diagnoses discussed, prognosis discussed, patient is full code. Patient family knowledges understanding and agreement with care plan, +30 minutes. (8) Preventative health care Current Visit: Yes Status: Acute Plan to address problem: Patient family counseled regarding patient prognosis, home safety precautions, patient prognosis. Outpatient follow-up with primary care physician for all age and risk factor appropriate screening test. +30 minutes. History Interval history: Patient seen and examined this morning showing some improvement but still intermittent confusion. Had an outburst this morning. Improved with reorientation discussed with nursing staff, significant other and daughter. Hospitalist Physical - Physical exam Narrative exam: General appearance: Present: No apparent distress but uncomfortable on intermittent confusion sluggish in response. - EENT Eyes: Present: PERRL ENT: hearing intact, clear oral mucosa, hearing decreased - Neck Neck: Present: supple, normal ROM - Respiratory Respiratory effort: labored Respiratory: bilateral: diminished - Cardiovascular Heart Sounds: Present: S1 & S2. Absent: rub, click - Extremities Extremities: pulses symmetrical, No edema Peripheral Pulses: within normal limits - Abdominal General gastrointestinal: Present: soft, non-tender, non-distended, normal bowel sounds Female genitourinary: Present: normal - Integumentary Integumentary: Present: clear, dry, decreased turgor - Musculoskeletal Musculoskeletal: generalized weakness - Psychiatric Psychiatric: calm with intermittent burst of confusion - Neurologic Neurologic: CNII-XII intact, no focal deficits, moves all extremities, no gait normal - Constitutional Vitals: Temp Pulse Resp BP Pulse Ox 98 F 64 9 L 153/54 100 10/12/21 12:59 10/12/21 15:00 10/12/21 15:00 10/12/21 15:00 10/12/21 15:00 General appearance: Present: mild distress Results - Labs CBC & Chem 7: 10/12/21 05:20 10/12/21 11:08 Labs: Laboratory Last Values WBC 12.0 K/mm3 (4.5-11.0) H 10/12/21 05:20 RBC 3.13 M/mm3 (3.65-5.03) L 10/12/21 05:20 Hgb 10.2 gm/dl (10.1-14.3) 10/12/21 05:20 Hct 28.3 % (30.3-42.9) L 10/12/21 05:20 MCV 90 fl (79-97) 10/12/21 05:20 MCH 33 pg (28-32) H 10/12/21 05:20 MCHC 36 % (30-34) H 10/12/21 05:20 RDW 15.6 % (13.2-15.2) H 10/12/21 05:20 Plt Count 239 K/mm3 (140-440) 10/12/21 05:20 Add Manual Diff Complete 10/10/21 11:50 Total Counted 100 10/10/21 11:50 Seg Neutrophils % [employer] 10/10/21 11:50 Seg Neuts % (Manual) 88.0 % (40.0-70.0) H 10/10/21 11:50 Band Neutrophils % 0 % 10/10/21 11:50 Lymphocytes % (Manual) 1.0 % (13.4-35.0) L 10/10/21 11:50 Reactive Lymphs % (Man) 0 % 10/10/21 11:50 Monocytes % (Manual) 11.0 % (0.0-7.3) H 10/10/21 11:50 Eosinophils % (Manual) 0 % (0.0-4.3) 10/10/21 11:50 Basophils % (Manual) 0 % (0.0-1.8) 10/10/21 11:50 Metamyelocytes % 0 % 10/10/21 11:50 Myelocytes % 0 % 10/10/21 11:50 Promyelocytes % 0 % 10/10/21 11:50 Blast Cells % 0 % 10/10/21 11:50 Nucleated RBC % Not Reportable 10/10/21 11:50 Seg Neutrophils # Man 20.2 K/mm3 (1.8-7.7) H 10/10/21 11:50 Band Neutrophils # 0.0 K/mm3 10/10/21 11:50 Lymphocytes # (Manual) 0.2 K/mm3 (1.2-5.4) L 10/10/21 11:50 Abs React Lymphs (Man) 0.0 K/mm3 10/10/21 11:50 Monocytes # (Manual) 2.5 K/mm3 (0.0-0.8) H 10/10/21 11:50 Eosinophils # (Manual) 0.0 K/mm3 (0.0-0.4) 10/10/21 11:50 Basophils # (Manual) 0.0 K/mm3 (0.0-0.1) 10/10/21 11:50 Metamyelocytes # 0.0 K/mm3 10/10/21 11:50 Myelocytes # 0.0 K/mm3 10/10/21 11:50 Promyelocytes # 0.0 K/mm3 10/10/21 11:50 Blast Cells # 0.0 K/mm3 10/10/21 11:50 WBC Morphology Not Reportable 10/10/21 11:50 Hypersegmented Neuts Not Reportable 10/10/21 11:50 Hyposegmented Neuts Not Reportable 10/10/21 11:50 Hypogranular Neuts Not Reportable 10/10/21 11:50 Smudge Cells Not Reportable 10/10/21 11:50 Toxic Granulation Not Reportable 10/10/21 11:50 Toxic Vacuolation Not Reportable 10/10/21 11:50 Dohle Bodies Not Reportable 10/10/21 11:50 Pelger-Huet Anomaly Not Reportable 10/10/21 11:50 Arun Rods Not Reportable 10/10/21 11:50 Platelet Estimate Consistent w auto 10/10/21 11:50 Clumped Platelets Not Reportable 10/10/21 11:50 Plt Clumps, EDTA Not Reportable 10/10/21 11:50 Large Platelets Not Reportable 10/10/21 11:50 Giant Platelets Not Reportable 10/10/21 11:50 Platelet Satelliting Not Reportable 10/10/21 11:50 Plt Morphology Comment Not Reportable 10/10/21 11:50 RBC Morphology Not Reportable 10/10/21 11:50 Dimorphic RBCs Not Reportable 10/10/21 11:50 Polychromasia Not Reportable 10/10/21 11:50 Hypochromasia Not Reportable 10/10/21 11:50 Poikilocytosis Not Reportable 10/10/21 11:50 Anisocytosis 1+ 10/10/21 11:50 Microcytosis Not Reportable 10/10/21 11:50 Macrocytosis Not Reportable 10/10/21 11:50 Spherocytes Not Reportable 10/10/21 11:50 Pappenheimer Bodies Not Reportable 10/10/21 11:50 Sickle Cells Not Reportable 10/10/21 11:50 Target Cells Not Reportable 10/10/21 11:50 Tear Drop Cells Not Reportable 10/10/21 11:50 Ovalocytes Not Reportable 10/10/21 11:50 Helmet Cells Not Reportable 10/10/21 11:50 [place] Bodies Not Reportable 10/10/21 11:50 [place] Rings Not Reportable 10/10/21 11:50 [place] Cells Not Reportable 10/10/21 11:50 Bite Cells Not Reportable 10/10/21 11:50 Crenated Cell Not Reportable 10/10/21 11:50 Elliptocytes Not Reportable 10/10/21 11:50 Acanthocytes (Spur) Not Reportable 10/10/21 11:50 Rouleaux Not Reportable 10/10/21 11:50 Hemoglobin C Crystals Not Reportable 10/10/21 11:50 Schistocytes Not Reportable 10/10/21 11:50 Malaria parasites Not Reportable 10/10/21 11:50 Judd Bodies Not Reportable 10/10/21 11:50 Hem Pathologist Commnt No 10/10/21 11:50 PT 12.6 Sec. (12.2-14.9) 10/10/21 11:50 INR 0.86 (0.87-1.13) L 10/10/21 11:50 APTT 29.4 Sec. (24.2-36.6) 10/10/21 11:50 Sodium 125 mmol/L (137-145) L 10/12/21 11:08 Potassium 3.6 mmol/L (3.6-5.0) 10/12/21 05:20 Chloride 87.4 mmol/L (98-107) L 10/12/21 05:20 Carbon Dioxide 27 mmol/L (22-30) 10/12/21 05:20 Anion Gap 14 mmol/L 10/12/21 05:20 BUN 15 mg/dL (7-17) 10/12/21 05:20 Creatinine 0.7 mg/dL (0.6-1.2) 10/12/21 05:20 Estimated GFR > 60 ml/min 10/12/21 05:20 BUN/Creatinine Ratio 21 % 10/12/21 05:20 Glucose 100 mg/dL (65-100) 10/12/21 05:20 Osmolality 238 Mosm/kg 10/10/21 22:55 Lactic Acid 1.20 mmol/L (0.7-2.0) 10/10/21 22:44 Uric Acid 3.9 mg/dL (3.5-7.6) 10/11/21 05:51 Calcium 8.3 mg/dL (8.4-10.2) L 10/12/21 05:20 Phosphorus 1.70 mg/dL (2.5-4.5) L 10/12/21 05:20 Magnesium 2.20 mg/dL (1.7-2.3) 10/12/21 05:20 Total Bilirubin 3.90 mg/dL (0.1-1.2) H 10/10/21 11:50 AST 70 units/L (5-40) H 10/10/21 11:50 ALT 18 units/L (7-56) 10/10/21 11:50 Alkaline Phosphatase 117 units/L (35-129) 10/10/21 11:50 Ammonia 49.0 umol/L (25-60) 10/10/21 11:50 Total Creatine Kinase 1016 units/L (30-135) H 10/10/21 11:50 Total Protein 7.7 g/dL (6.3-8.2) 10/10/21 11:50 Albumin 4.8 g/dL (3.9-5) 10/10/21 11:50 Albumin/Globulin Ratio 1.7 % 10/10/21 11:50 Lipase 32 units/L (13-60) 10/10/21 15:15 Urine Color Dark yellow (Yellow) 10/10/21 14:30 Urine Turbidity Clear (Clear) 10/10/21 14:30 Specific Gaffney (Man) 1.010 (1.003-1.030) 10/10/21 14:30 Ur Protein (Man) 3+ mg/dL (Negative) 10/10/21 14:30 Ur Ketones (Man) Negative (Negative) 10/10/21 14:30 Ur Nitrite (Man) Negative (Negative) 10/10/21 14:30 Urine Bilirubin (Man) Negative (Negative) 10/10/21 14:30 Leukocyte Esterase (Man) Negative (Negative) 10/10/21 14:30 Urine WBC (Auto) 1.0 /HPF (0.0-6.0) 10/10/21 14:30 Urine RBC (Auto) 10.0 /HPF (0.0-6.0) 10/10/21 14:30 U Epithel Cells (Auto) 3.0 /HPF (0-13.0) 10/10/21 14:30 Urine RBC (Manual) 2+ (Negative) 10/10/21 14:30 Hyaline Casts 19 /LPF 10/10/21 14:30 Urine Mucus Few /HPF 10/10/21 14:30 Urine Osmolality 442 Mosm/kg 10/10/21 22:52 Salicylates < 0.3 mg/dL (2.8-20.0) L 10/10/21 11:50 Acetaminophen 5.0 ug/mL (10.0-30.0) L 10/10/21 11:50 Plasma/Serum Alcohol < 0.01 % (0-0.07) 10/10/21 11:50 Blood Type O NEGATIVE 10/10/21 16:28 Antibody Screen Negative 10/10/21 16:28 Microbiology: Microbiology 10/10/21 16:14 Peripheral/Venous Blood Culture - Preliminary Coag Negative Staphylococcus 10/10/21 16:14 Peripheral/Venous Blood Culture - Preliminary NO GROWTH AFTER 24 HOURS Lee/IV: Voiding Method External Female Catheter Active Medications - Current Medications Current Medications: Generic Name Dose Route Start Last Admin Trade Name Freq PRN Reason Stop Dose Admin Acetaminophen 650 mg 10/10/21 15:48 10/12/21 08:23 Acetaminophen 325 Mg Tab PO 650 mg Q6H PRN Administration Pain MILD(1-3)/Fever >100.5/HASSAN Albuterol 2.5 mg 10/10/21 15:48 Albuterol 2.5 Mg/3 Ml Nebu IH Q3HRT PRN Shortness Of Breath Alprazolam 0.5 mg 10/11/21 12:00 10/12/21 11:57 Alprazolam 0.5 Mg Tab PO 0.5 mg Q8H KULDIP Administration Hydromorphone HCl 0.5 mg 10/10/21 15:48 Hydromorphone 0.5 Mg/0.5 Ml Inj IV Q23H PRN Pain , Severe (7-10) Hydromorphone HCl 0.25 mg 10/10/21 15:50 10/11/21 19:50 Hydromorphone 0.5 Mg/0.5 Ml Inj IV 0.25 mg Q4H PRN Administration Pain, Moderate (4-6) Ceftriaxone Sodium 2 gm in 100 mls @ 200 mls/hr 10/11/21 13:00 10/12/21 14:30 Rocephin/Ns 2 Gm/100 Ml IV 10/13/21 13:29 200 mls/hr Q24H KULDIP Administration Protocol Potassium Phosphate 20 mmol/ 506.6667 mls @ 83 mls/hr 10/12/21 11:00 10/12/21 11:29 Sodium Chloride IV 10/12/21 17:06 83 mls/hr ONCE ONE Administration Potassium Chloride 40 meq/ 1,020 mls @ 125 mls/hr 10/12/21 11:00 10/12/21 11:04 Sodium Chloride IV 125 mls/hr DIRECT KULDIP Administration Oxycodone/Acetaminophen 1 tab 10/10/21 15:48 Oxycodone /Acetaminophen 5-325mg Tab PO Q16H PRN Pain, Moderate (4-6) Sodium Chloride 10 ml 10/10/21 22:00 10/12/21 10:02 Sodium Chloride 0.9% 10 Ml Flush Syringe IV 10 ml BID KULDIP Administration Sodium Chloride 10 ml 10/10/21 15:48 Sodium Chloride 0.9% 10 Ml Flush Syringe IV PRN PRN LINE FLUSH Sodium Chloride 1 gm 10/12/21 15:00 Sodium Chloride 1 Gm Tab PO TID KULDIP
[2021-10-12] MEDS: SODIUM CHLORIDE 1 GM TAB PO SCH ×2 (16:23→22:30)
[2021-10-13] MEDS ORDERED: hydrALAZINE 20 MG/1 ML INJ IV ONE (01:20)
[2021-10-13] MEDS: POTASSIUM CHLORIDE IV SCH (01:50)
[2021-10-13] MEDS: SODIUM CHLORIDE 0.9% IV SCH (01:50)
[2021-10-13] MEDS: ALPRAZolam 0.5 MG TAB PO SCH ×2 (05:19→11:21)
[2021-10-13] MEDS: SODIUM CHLORIDE 1 GM TAB PO SCH ×2 (08:02→14:00)
--- NOTE | 2021-10-13 08:44 | Progress Note ---
Assessment and Plan 1. Hyponatremia: Hyponatremia likely 2/2 volume depletion +/- SIADH. S/p IV fluids. Continue Salt tablets. Sodium level is gradually improving. Monitor Sodium level. 2. FEN: Hypokalemia, replete K, monitor. Replete lytes as needed. Monitor lytes and volume status. 3. Leukocytosis, POA: Improving. 4. Toxic metabolic encephalopathy, POA: CT head negative. Monitor. Subjective: Patient was seen and examined at the bedside. Daughter at the bedside. Examination: General appearance: well-developed, appears stated age, obese, no distress HEENT: atraumatic, no icterus Neck: trachea midline Respiratory: ctab Heart: S1S2, regular, no murmur Abdomen: soft, bowel sounds heard, NT Integumentary: no obvious rash Neurologic: alert, able to move extremities, confused Ext: no edema Subjective Date of service: 10/13/21 Objective - Vital Signs Vital signs: Vital Signs - 12hr 10/12/21 10/12/21 10/13/21 22:00 23:37 01:50 Temperature 97.7 F Pulse Rate 74 74 Respiratory 17 20 Rate Respiratory 17 Rate [Back] Blood Pressure 184/63 184/63 O2 Sat by Pulse 100 94 Oximetry 10/13/21 10/13/21 05:15 08:28 Temperature 97.6 F Pulse Rate 70 Respiratory 20 20 Rate Respiratory Rate [Back] Blood Pressure 145/43 O2 Sat by Pulse 100 100 Oximetry - Lab 10/12/21 05:20 10/13/21 13:52 Most recent lab results Calcium 8.3 mg/dL (8.4-10.2) L 10/12/21 05:20 Phosphorus 1.70 mg/dL (2.5-4.5) L 10/12/21 05:20 Magnesium 2.20 mg/dL (1.7-2.3) 10/12/21 05:20 Medications & Allergies - Medications Allergies/Adverse Reactions: Allergies No Known Allergies Allergy (Verified 10/10/21 14:02) Home Medications: Home Medications Medication Instructions Recorded Confirmed Last Taken Type Ondansetron [Zofran ODT TAB] 4 mg PO ONCE #12 tab.rapdis 07/07/19 10/12/21 Unknown Rx Chlorthalidone [Thalitone] 25 mg PO QDAY 10/12/21 10/12/21 Unknown History Fluticasone [Flonase] 1 spray NS QDAY 10/12/21 10/12/21 Unknown History Nebivolol HCl 1 tab PO QDAY 10/12/21 10/12/21 Unknown History Pantoprazole [Protonix TAB] 40 mg PO QDAY 10/12/21 10/12/21 Unknown History Potassium Chloride [K-Dur] 10 meq PO QDAY 10/12/21 10/12/21 Unknown History Venlafaxine [Effexor] 75 mg PO BID 10/12/21 10/12/21 Unknown History lisinopriL [Lisinopril] 40 mg PO QDAY 10/12/21 10/12/21 Unknown History ALPRAZolam [Xanax TAB] 1 mg PO TID #30 tab 10/13/21 Unknown Rx PARoxetine [Paxil] 20 mg PO DAILY #30 tab 10/13/21 Unknown Rx Sodium Chloride 1 gm PO TID #14 tablet 10/13/21 Unknown Rx cephALEXin [Keflex] 500 mg PO Q8HR #10 cap 10/13/21 Unknown Rx Active Medications: Generic Name Dose Route Start Last Admin Trade Name Freq PRN Reason Stop Dose Admin Acetaminophen 650 mg 10/10/21 15:48 10/12/21 08:23 Acetaminophen 325 Mg Tab PO 650 mg Q6H PRN Administration Pain MILD(1-3)/Fever >100.5/HASSAN Albuterol 2.5 mg 10/10/21 15:48 Albuterol 2.5 Mg/3 Ml Nebu IH Q3HRT PRN Shortness Of Breath Alprazolam 0.5 mg 10/11/21 12:00 10/13/21 05:19 Alprazolam 0.5 Mg Tab PO 0.5 mg Q8H KULDIP Administration Hydromorphone HCl 0.5 mg 10/10/21 15:48 Hydromorphone 0.5 Mg/0.5 Ml Inj IV Q23H PRN Pain , Severe (7-10) Hydromorphone HCl 0.25 mg 10/10/21 15:50 10/11/21 19:50 Hydromorphone 0.5 Mg/0.5 Ml Inj IV 0.25 mg Q4H PRN Administration Pain, Moderate (4-6) Ceftriaxone Sodium 2 gm in 100 mls @ 200 mls/hr 10/11/21 13:00 10/12/21 15:00 Rocephin/Ns 2 Gm/100 Ml IV 10/13/21 13:29 Infused Q24H KULDIP Infusion Protocol Potassium Chloride 40 meq/ 1,020 mls @ 125 mls/hr 10/12/21 11:00 10/13/21 01:50 Sodium Chloride IV 125 mls/hr DIRECT KULDIP Administration Oxycodone/Acetaminophen 1 tab 10/10/21 15:48 Oxycodone /Acetaminophen 5-325mg Tab PO Q16H PRN Pain, Moderate (4-6) Sodium Chloride 10 ml 10/10/21 22:00 10/12/21 22:30 Sodium Chloride 0.9% 10 Ml Flush Syringe IV 10 ml BID KULDIP Administration Sodium Chloride 10 ml 10/10/21 15:48 Sodium Chloride 0.9% 10 Ml Flush Syringe IV PRN PRN LINE FLUSH Sodium Chloride 1 gm 10/12/21 15:00 10/13/21 08:02 Sodium Chloride 1 Gm Tab PO 1 gm TID KULDIP Administration
[2021-10-13 12:37] VITALS: BP 150/45
--- NOTE | 2021-10-13 12:53 | Discharge Summary ---
Providers - Providers Date of Admission: 10/10/21 15:48 Attending physician: MATEUS PATHAK MD 10/10/21 15:55 Consult to Physician [CONS] Routine Comment: Consulting Provider: PADMAJA VOGT Physician Instructions: Reason For Exam: hyponatremia 10/11/21 11:41 Consult to Mental Health [CONS] Routine Reason For Exam: Depression 10/11/21 11:42 Physical Therapy Evaluation and Treat [CONS] Routine Comment: Reason For Exam: Mobility eval 10/11/21 11:43 Occupational Therapy Evaluate and Treat [CONS] Routine Comment: Reason For Exam: Motor skills eval Primary care physician: [employer] Hospitalization Reason for admission: AMS Condition: Stable Hospital course: 71 YO Female with Vascular Dementia, Cerebral Atherosclerosis, HTN, Abdominal Malignancy NOS presents to ED for evaluation. Patient has diminished cognition at the time of evaluation is unable to provide history. Patient history provided by her family numbers who are at bedside during exam and interview. As per family the patient has experienced increased confusion, garbled speech, and wandering around the house at night over the past 1 week with worsening symptoms over the same timeframe. Patient experienced a fall last night. EMS was notified and upon arrival the patient was found to be in distress and subsequent transported to [facility] for further care and evaluation of the aforementioned symptoms. The patient was seen and evaluated in the emergency department. All lab and imaging studies reviewed. The patient was found to have severe hyponatremia, metabolic encephalopathy, sepsis suspected secondary to urinary tract infection, as well as toxic metabolic encephalopathy. Patient mated to [facility] and initiated on sepsis protocol. Nephrology team consulted in ED. Patient has diminished cognition at the time my evaluation but has a positive gag reflex and is able to protect her airway without difficulty. No reports of fever, chills, chest pain, palpitation, productive cough, skin rash, recent contact, known exposure to COVID-19. No prior admission for review. All medication listed at time of admission has been reconciled. Advanced care planning conducted in ED. Past History Past Medical History: hypertension, other (See HPI) Past Surgical History: Other (Bladder surgery') Social history: single, lives with family Family history: hypertension 10/11: Patient seen and examined nephrology to see the patient due to severe hyponatremia felt to be secondary to volume depletion. On review of home medication patient is on paroxetine 20 mg Seroquel 50 mg Xanax 1 mg 3 times daily Venlfaxin 75 mg twice daily estradiol and lisinopril. His medications were last filled 09/18/2021. Some of antipsychotics could definitely lead to hyponatremia. In any case I agrees with nephrology management at this time. Sodium tablets also ordered for the patient. Will await further work-up we will check sodium levels daily 8 hours. Fall precaution aspiration precaution. Patient was recently treated for an infection as evidenced by Augmentin is not clear what infection this was. 10/12: Patient seen and examined, sodium is improving. Nephro input is noted. Psychiatry also did see the patient documented dementia with behavioral disorder continue current management. Anticipate that there will be improvement with correction of underlying electrolyte abnormalities. We will replace potassium and phosphorus. Cultures did come back with gram-positive cocci in clusters patient is currently on empiric antibiotic coverage. We will proceed with transferring to the medical floor once a bed is available. Hopefully discharge in a.m. once clinically improved and culture ID and sensitivity identified. Patient with no fever at this time. Continue close monitoring 10/13: Patient seen and examined, no new issues, she is back to baseline and insisting on getting her Blue xanax. Daughter is at bedside, explained improtance of following with psychiatrist. Sodium is improving, recommend repeat outpatient. (1) Sepsis Current Visit: Yes Status: Acute Plan to address problem: CBC, CMP, chest x-ray, urinalysis, IV antibiotic therapy, monitor urine output, monitor fluid balance, maintain mean arterial pressure greater than or equal to 65, IV antibiotic therapy, IV fluid resuscitation therapy. (2) Hyponatremia syndrome Current Visit: Yes Status: Acute Plan to address problem: IV fluid resuscitation therapy, nephrology team consulted in ED. (3) Metabolic encephalopathy Current Visit: Yes Status: Acute Plan to address problem: CT head, neuro check, seizure precaution, aspiration precautions, IV fluid resuscitation therapy. (4) UTI (urinary tract infection) Current Visit: Yes Status: Acute Qualifiers: Encounter type: initial encounter Plan to address problem: Urinalysis, IV antibiotic therapy. (5) Toxic metabolic encephalopathy Current Visit: Yes Status: Acute Plan to address problem: Treat sepsis, IV fluid resuscitation therapy, neuro check. (6) hypokalemia with hyponatremia Disposition: 01 HOME / SELF CARE / HOMELESS Final Discharge Diagnosis (Prints w/discharge instructions): Severe Hypovolemic Hyponatremia. Hypokalemia. Acute Metabolic Encephalopathy. Sepsis Time spent for discharge: 35 mins Core Measure Documentation - Palliative Care Palliative Care/ Comfort Measures: Not Applicable - Core Measures Any of the following diagnoses?: none Exam - Physical Exam Narrative exam: General appearance: Present: No apparent distress but uncomfortable on intermittent confusion sluggish in response. - EENT Eyes: Present: PERRL ENT: hearing intact, clear oral mucosa, hearing decreased - Neck Neck: Present: supple, normal ROM - Respiratory Respiratory effort: labored Respiratory: bilateral: diminished - Cardiovascular Heart Sounds: Present: S1 & S2. Absent: rub, click - Extremities Extremities: pulses symmetrical, No edema Peripheral Pulses: within normal limits - Abdominal General gastrointestinal: Present: soft, non-tender, non-distended, normal bowel sounds Female genitourinary: Present: normal - Integumentary Integumentary: Present: clear, dry, decreased turgor - Musculoskeletal Musculoskeletal: generalized weakness - Psychiatric Psychiatric: calm with intermittent burst of confusion - Neurologic Neurologic: CNII-XII intact, no focal deficits, moves all extremities, no gait normal - Constitutional Vitals: Temp Pulse Resp BP Pulse Ox 97.7 F 79 20 150/45 95 10/13/21 10:57 10/13/21 10:57 10/13/21 10:57 10/13/21 10:57 10/13/21 10:57 Plan Activity: advance as tolerated, fall precautions Diet: regular Follow up with: JESSICA COSTA MD [Primary Care Provider] - 7 Days YELENA CANNON MD [Staff Physician] - 7 Days PADMAJA VOGT MD [Staff Physician] - 7 Days Prescriptions: cephALEXin [Keflex] 500 mg PO Q8HR #10 cap PARoxetine [Paxil] 20 mg PO DAILY #30 tab Sodium Chloride 1 gm PO TID #14 tablet ALPRAZolam [Xanax TAB] 1 mg PO TID #30 tab
[2021-10-13] MEDS: cefTRIAXone/NS 2 GM/100 ML 2 GM/100 ML BAG IV SCH (12:55)
[2021-10-13 14:40] LABS: Blood Urea Nitrogen 9 mg/dL (7-17); Calcium 8.8 mg/dL (8.4-10.2); Hemolysis Index 6
[2021-10-13 14:41] LABS: BUN/Creatinine Ratio 13
== END 2021-10-13 14:30 | disposition home or self-care (01) | DRG 871 ==
LOC: ED 08:58 → IMCU 15:48 → 3A 10-12 18:33
PROVIDERS: ADMIT Internal Medicine; ATTEND Internal Medicine
DX: A41.9 Sepsis, unspecified organism (principal); G92.8 Other toxic encephalopathy; N39.0 Urinary tract infection, site not specified; E87.1 Hypo-osmolality and hyponatremia; F01.51 Vascular dementia, unspecified severity, with behavioral disturbance; I10 Essential (primary) hypertension; E87.6 Hypokalemia; F41.9 Anxiety disorder, unspecified; I48.91 Unspecified atrial fibrillation; E66.9 Obesity, unspecified; I67.2 Cerebral atherosclerosis; Z68.33 Body mass index [BMI] 33.0-33.9, adult; Z82.49 Family history of ischemic heart disease and other diseases of the circulatory system; Z87.891 Personal history of nicotine dependence
CPT/HCPCS: 36415; 70450; 71045; 76705; 80048; 80053; 80320; 81001; 82140; 82550; 83690; 83735; 83930; 83935; 84100; 84295; 84550; 85007; 85025; 85027; 85610; 85730; 86850; 86900; 86901; 87040; G0378; J2704; J7510; G0480; J0360; J0696; J1170; J2060; J3370; J3475; J3480; J7030; J7040